=== PATIENT | female | born 1945 | race Caucasian/White ===

== ENCOUNTER 2017-09-01 19:06 | Inpatient (IN) | payer MEDICARE, BC ==
[2017-09-01] MEDS ORDERED: Acetaminophen 325 MG Tab PO ONE (19:35)
--- NOTE | 2017-09-01 19:38 | EDM.PDOC ---
ED HPI GENERAL MEDICAL PROBLEM - General Chief Complaint: Respiratory Problem Stated Complaint: FLU LIKE SENT FROM [place] TO DO TEST Time Seen by Provider: 09/01/17 19:33 Source of Information: Reports: Patient, Family (spouse) History Limitations: Reports: No Limitations - History of Present Illness INITIAL COMMENTS - FREE TEXT/NARRATIVE: 72-year-old female brought to the ED by her spouse. History is that of development of fever chills paroxysmal cough bodyaches and headache last Friday, August 27 . She continues to have severe paroxysmal cough that is intermittently productive. Still chilled. Can't eat. Losing weight. Has been mostly bedridden for almost a week. 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 She did not receive a flu shot. She has restrictive lung disease but does not use oxygen at home. Onset: Sudden Onset Date: 08/27/17 Duration: Day(s):, Constant, Getting Worse Location: Reports: Chest (Severe paroxysmal cough sometimes productive of yellowish phlegm. No hemoptysis.) Quality: Reports: Other Severity: Moderate (Paroxysmal cough) Improves with: Reports: None Worsens with: Reports: Movement (Very weak and dizzy when she stands or tries to do any work.) Context: Reports: Sick Contact. Denies: Activity, Exercise, Lifting, Trauma, Other Associated Symptoms: Reports: Chest Pain, Cough, cough w sputum, Diaphoresis, Fever/Chills, Headaches, Loss of Appetite, Malaise (Complete loss of appetite. Has been taking small quantities of Pedialyte and Gatorade.), Shortness of Breath, Weakness, Other (Had slight diarrhea the first day of illness.). Denies : No Other Symptoms, Confusion (From coughing so much), Rash, Seizure, Syncope Treatments INTELLIGENCE AGENT: Reports: Acetaminophen, NSAIDS (Motrin when necessary.) - Related Data Allergies Allergy/AdvReac Type Severity Reaction Status Date / Time No Known Allergies Allergy Verified 09/01/17 22:39 Home Meds: Home Meds Levothyroxine [Synthroid] 88 mcg PO ACBREAKFAST 09/01/17 [History] Past Medical History Endocrine/Metabolic History: Reports: Hypothyroidism (Is on supplement and has been taking her medication.) Hematologic History: Reports: B12 Deficiency Social & Family History - Tobacco Use Smoking Status *Q: Unknown Ever Smoked Second Hand Smoke Exposure: No - Recreational Drug Use Recreational Drug Use: No - Living Situation & Occupation Living situation: Reports: Occupation: Employed ED ROS GENERAL - Review of Systems Review Of Systems: See Below Constitutional: Reports: Fever, Chills, Malaise, Weakness, Fatigue, Diaphoresis , Decreased Appetite, Weight Loss HEENT: Reports: Ear Pain, Hearing Loss (Hearing aids but hasn't put them in because they hurt.). Denies: Vision Change Respiratory: Reports: Shortness of Breath, Cough, Sputum. Denies: Wheezing, Pleuritic Chest Pain, Hemoptysis Cardiovascular: Reports: Chest Pain, Dyspnea on Exertion (Special he was standing), Lightheadedness. Denies: Blood Pressure Problem (Only from coughing so much.), Claudication, Edema, Orthopnea Endocrine: Reports: Fatigue GI/Abdominal: Reports: Abdominal Pain (Upper abdominal pain I believe from coughing.) : Reports: Dysuria (Some dysuria. Not making as much urine is normal.) Musculoskeletal: Reports: Muscle Pain (Generalized myalgia and headache) Neurological: Reports: Dizziness, Difficulty Walking (Due to weakness in her legs.). Denies: Paresthesia, Pre-Existing Deficit (With standing), Seizure Psychiatric: Reports: No Symptoms Hematologic/Lymphatic: Reports: No Symptoms Immunologic: Reports: No Symptoms ED EXAM, GENERAL - Physical Exam Exam: See Below Exam Limited By: No Limitations General Appearance: Alert, Mild Distress, Other (Does feel mildly warm to palpation.) Eye Exam: Bilateral Eye: Normal Inspection (No jaundice.) Ears: Normal TMs Throat/Mouth: Other Head: Atraumatic (Lips and tongue are coated and dry. Oropharynx is otherwise normal.), Normocephalic Neck: Normal Inspection, Supple, Non-Tender, Full Range of Motion. No: Carotid Bruit, Lymphadenopathy (L), Lymphadenopathy (R) Respiratory/Chest: Respiratory Distress (Mild tachypnea at rest 20/m.), Decreased Breath Sounds (Some rhonchi upper anterior lobes bilaterally.), Rhonchi, Other ( Vessels are mildly diminished in both bases. patient has marked kyphosis of the thoracic spine and would have a component of restrictive lung disease. All ribs are easily visible.) Cardiovascular: Normal Peripheral Pulses, Regular Rate, Rhythm, No Edema, No Gallop, No Murmur, No Rub, Diastolic Murmur (Early diastolic murmur grade 1/6 Marianne the left lower sternal border compatible with aortic insufficiency.) Peripheral Pulses: 1+: Posterior Tibial (L), Posterior Tibial (R), Dorsalis Pedis (L), Dorsalis Pedis (R) GI/Abdominal: Normal Bowel Sounds, Soft, Non-Tender, No Organomegaly, No Abnormal Bruit, No Mass Back Exam: Normal Inspection, Full Range of Motion, Other (Marked kyphosis of the thoracic spine with a component of restrictive lung disease). No: CVA Tenderness (L), CVA Tenderness (R) Extremities: Normal Inspection, Normal Range of Motion, Non-Tender, No Pedal Edema, Other Neurological: Alert (She is very petite with some atrophy of muscles limbs.), Oriented, CN II-XII Intact, Normal Cognition Psychiatric: Normal Affect Skin Exam: Warm, Dry, Intact, Normal Color, No Rash, Other (Does feel mildly warm to palpation.) Course - Vital Signs Last Recorded V/S: Last Vital Signs Temp 37.3 C 09/01/17 22:52 Pulse 72 09/01/17 22:52 Resp 14 09/01/17 22:52 BP 121/97 H 09/01/17 22:52 Pulse Ox 97 09/01/17 22:52 - Orders/Labs/Meds Orders: Active Orders 24 hr Category Date Time Status Admission Status [Patient Status] [ADT] Routine ADT 09/01/17 22:29 Active Chest 1V Frontal [CR] Stat Exams 09/01/17 19:34 Taken CULTURE BLOOD [BC] Stat Lab 09/01/17 20:30 Received CULTURE BLOOD [BC] Stat Lab 09/01/17 20:30 Received CULTURE URINE [RM] Stat Lab 09/01/17 20:00 Received Dextrose 5%-0.9% NaCl [Dextrose 5%-Normal Saline] 1,000 Med 09/01/17 19:45 Active ml IV ASDIRECTED Dextrose 5%-0.9% NaCl [Dextrose 5%-Normal Saline] 1,000 Med 09/01/17 21:15 Active ml IV ASDIRECTED Ketorolac [Toradol] Med 09/01/17 19:45 Active 30 mg IVPUSH ONETIME Blood Culture x2 Reflex Set [OM.PC] Stat Oth 09/01/17 20:13 Ordered Medication Orders Hydrocodone Bitart/Acetaminophen ([place] 325-5 Mg) 1 tab PO Q4H PRN PRN Reason: Pain (moderate 4-6) Albuterol/Ipratropium (Duoneb 3.0-0.5 Mg/3 Ml) 3 ml NEB Q4H PRN PRN Reason: Shortness Of Breath/wheezing Bisacodyl (Dulcolax) 5 mg PO DAILY PRN PRN Reason: Constipation Docusate Sodium (Colace) 100 mg PO BID PRN PRN Reason: Constipation Enoxaparin Sodium (Lovenox) 40 mg SUBCUT DAILY [facility] Guaifenesin/Phenylephrine HCl (Robitussin Dm) 5 ml PO Q4H PRN PRN Reason: Cough Hydralazine HCl (Apresoline) 20 mg IVPUSH Q4H PRN PRN Reason: Hypertension Dextrose/Sodium Chloride (Dextrose 5%-Normal Saline) 1,000 mls @ 999 mls/hr IV ASDIRECTED [facility] Last Admin: 09/01/17 20:07 Dose: 999 mls/hr Dextrose/Sodium Chloride (Dextrose 5%-Normal Saline) 1,000 mls @ 150 mls/hr IV ASDIRECTED [facility] Last Admin: 09/01/17 21:30 Dose: 150 mls/hr Promethazine HCl 6.25 mg/ (Sodium Chloride) 50.25 mls @ 100 mls/hr IV Q6H PRN PRN Reason: Nausea/Vomiting Sodium Chloride (Normal Saline) 1,000 mls @ 75 mls/hr IV ASDIRECTED [facility] Last Admin: 09/01/17 23:41 Dose: 75 mls/hr Potassium Chloride 10 meq/ (Premix) 100 mls @ 100 mls/hr IV Q1H [facility] Stop: 09/02/17 04:59 Last Admin: 09/02/17 01:55 Dose: 100 mls/hr Infusion: 09/02/17 01:52 Dose: 100 mls/hr Admin: 09/02/17 00:52 Dose: 100 mls/hr Infusion: 09/02/17 00:42 Dose: 100 mls/hr Admin: 09/01/17 23:42 Dose: 100 mls/hr Levofloxacin/Dextrose 750 mg/ (Premix) 150 mls @ 100 mls/hr IV Q24H [facility] Ketorolac Tromethamine (Toradol) 30 mg IVPUSH ONETIME [facility] Last Admin: 09/01/17 20:01 Dose: 30 mg Levothyroxine Sodium (Synthroid) 88 mcg PO ACBREAKFAST [facility] Lorazepam (Ativan) 0.5 mg IV Q6H PRN PRN Reason: Anxiety Lorazepam (Ativan) 2 mg IVPUSH Q4H PRN PRN Reason: Seizures Magnesium Sulfate (Pharmacy To Dose - Magnesium Replacement) 1 dose .XX ASDIRECTED [facility] Morphine Sulfate (Morphine) 1 mg IVPUSH Q4H PRN PRN Reason: Pain (severe 7-10) Stop: 09/07/17 22:44 Ondansetron HCl (Zofran Odt) 4 mg PO Q6H PRN PRN Reason: nausea, able to take PO Ondansetron HCl (Zofran) 4 mg IV Q6H PRN PRN Reason: Nausea/Vomiting Oral Electrolytes (Thermotabs) 1 each PO BID [facility] Polyethylene Glycol (Miralax) 17 gm PO DAILY PRN PRN Reason: Constipation Potassium Chloride (Pharmacy To Dose - Potassium Replacement) 1 dose .XX ASDIRECTED [facility] Saccharomyces Boulardii (Florastor) 250 mg PO DAILY [facility] Senna/Docusate Sodium (Senna Plus) 1 tab PO BID PRN PRN Reason: Constipation Temazepam (Restoril) 7.5 mg PO BEDTIME PRN PRN Reason: Sleep Labs: Laboratory Tests 09/01/17 09/01/17 09/01/17 Range/Units 19:50 19:50 19:50 WBC 11.67 H (3.98-10.04) K/mm3 RBC 3.89 L (3.98-5.22) M/mm3 Hgb 12.1 (11.2-15.7) gm/L Hct 34.8 (34.1-44.9) % MCV 89.5 (79.4-94.8) fl MCH 31.1 (25.6-32.2) pg MCHC 34.8 (32.2-35.5) g/dl RDW Std Deviation 40.3 (36.4-46.3) fL Plt Count 241 (182-369) K/mm3 MPV 9.6 (9.4-12.3) fl Neutrophils % (Manual) 91 H (40-60) % Band Neutrophils % 0 (0-10) % Lymphocytes % (Manual) 4 L (20-40) % Atypical Lymphs % 0 % Monocytes % (Manual) 5 (2-10) % Eosinophils % (Manual) 0 L (0.7-5.8) % Basophils % (Manual) 0 L (0.1-1.2) Toxic Granulation 2+ moderate Platelet Estimate Adequate Anisocytosis 1+ slight RBC Morph Comment Abnormal ESR 81 H (0-20) mm/hr Sodium 129 L (136-145) mEq/L Potassium 2.7 L (3.5-5.1) mEq/L Chloride 93 L (98-107) mEq/L Carbon Dioxide 29 (21-32) mEq/L Anion Gap 9.7 (5-15) BUN 10 (7-18) mg/dL Creatinine 0.6 (0.55-1.02) mg/dL Est Cr Clr Drug Dosing 65.60 mL/min Estimated GFR (MDRD) > 60 (>60) mL/min BUN/Creatinine Ratio 16.7 (14-18) Glucose 108 (80-115) mg/dL Calcium 8.4 L (8.5-10.1) mg/dL Total Bilirubin 0.7 (0.2-1.0) mg/dL AST 34 (15-37) U/L ALT 29 (14-59) U/L Alkaline Phosphatase 65 (46-116) U/L C-Reactive Protein 26.0 H* (<1.0) mg/dL Total Protein 6.4 (6.4-8.2) g/dl Albumin 2.4 L (3.4-5.0) g/dl Globulin 4.0 gm/dL Albumin/Globulin Ratio 0.6 L (1-2) Urine Color (Yellow) Urine Appearance (Clear) Urine pH (5.0-8.0) Ur Specific [place] (1.005-1.030) Urine Protein (Negative) Urine Glucose (UA) (Negative) Urine Ketones (Negative) Urine Occult Blood (Negative) Urine Nitrite (Negative) Urine Bilirubin (Negative) Urine Urobilinogen (0.2-1.0) Ur Leukocyte Esterase (Negative) Urine RBC (0-5) /hpf Urine WBC (0-5) /hpf Ur Epithelial Cells (0-5) /hpf Urine Bacteria (FEW) /hpf Urine Mucus (FEW) /hpf Mycoplasma pneumon IgM (NEGATIVE) 03/12/18 03/12/18 Range/Units 19:50 20:00 WBC (3.98-10.04) K/mm3 RBC (3.98-5.22) M/mm3 Hgb (11.2-15.7) gm/L Hct (34.1-44.9) % MCV (79.4-94.8) fl MCH (25.6-32.2) pg MCHC (32.2-35.5) g/dl RDW Std Deviation (36.4-46.3) fL Plt Count (182-369) K/mm3 MPV (9.4-12.3) fl Neutrophils % (Manual) (40-60) % Band Neutrophils % (0-10) % Lymphocytes % (Manual) (20-40) % Atypical Lymphs % % Monocytes % (Manual) (2-10) % Eosinophils % (Manual) (0.7-5.8) % Basophils % (Manual) (0.1-1.2) Toxic Granulation Platelet Estimate Anisocytosis RBC Morph Comment ESR (0-20) mm/hr Sodium (136-145) mEq/L Potassium (3.5-5.1) mEq/L Chloride (98-107) mEq/L Carbon Dioxide (21-32) mEq/L Anion Gap (5-15) BUN (7-18) mg/dL Creatinine (0.55-1.02) mg/dL Est Cr Clr Drug Dosing mL/min Estimated GFR (MDRD) (>60) mL/min BUN/Creatinine Ratio (14-18) Glucose (80-115) mg/dL Calcium (8.5-10.1) mg/dL Total Bilirubin (0.2-1.0) mg/dL AST (15-37) U/L ALT (14-59) U/L Alkaline Phosphatase (46-116) U/L C-Reactive Protein (<1.0) mg/dL Total Protein (6.4-8.2) g/dl Albumin (3.4-5.0) g/dl Globulin gm/dL Albumin/Globulin Ratio (1-2) Urine Color Yellow (Yellow) Urine Appearance Clear (Clear) Urine pH 7.0 (5.0-8.0) Ur Specific [place] 1.020 (1.005-1.030) Urine Protein 2+ H (Negative) Urine Glucose (UA) Negative (Negative) Urine Ketones Negative (Negative) Urine Occult Blood Trace-intact H (Negative) Urine Nitrite Negative (Negative) Urine Bilirubin 1+ H (Negative) Urine Urobilinogen >=8.0 H (0.2-1.0) Ur Leukocyte Esterase Negative (Negative) Urine RBC 10-20 H (0-5) /hpf Urine WBC 5-10 H (0-5) /hpf Ur Epithelial Cells 0-5 (0-5) /hpf Urine Bacteria Few (FEW) /hpf Urine Mucus Moderate H (FEW) /hpf Mycoplasma pneumon IgM Negative (NEGATIVE) Meds: Medications Generic Name Dose Route Start Last Admin Trade Name Freq PRN Reason Stop Dose Admin Hydrocodone Bitart/Acetaminophen 1 tab 09/01/17 22:41 [place] 325-5 Mg PO Q4H PRN Pain (moderate 4-6) Albuterol/Ipratropium 3 ml 09/01/17 22:45 Duoneb 3.0-0.5 Mg/3 Ml NEB Q4H PRN Shortness Of Breath/wheezing Bisacodyl 5 mg 09/01/17 22:45 Dulcolax PO DAILY PRN Constipation Docusate Sodium 100 mg 09/01/17 22:45 Colace PO BID PRN Constipation Enoxaparin Sodium 40 mg 09/02/17 09:00 Lovenox SUBCUT DAILY [facility] Guaifenesin/Phenylephrine HCl 5 ml 09/01/17 22:52 Robitussin Dm PO Q4H PRN Cough Hydralazine HCl 20 mg 09/01/17 22:52 Apresoline IVPUSH Q4H PRN Hypertension Dextrose/Sodium Chloride 1,000 mls @ 999 mls/hr 09/01/17 19:45 09/01/17 20:07 Dextrose 5%-Normal Saline IV 999 mls/hr ASDIRECTED [facility] Administration Dextrose/Sodium Chloride 1,000 mls @ 150 mls/hr 09/01/17 21:15 09/01/17 21:30 Dextrose 5%-Normal Saline IV 150 mls/hr ASDIRECTED [facility] Administration Promethazine HCl 6.25 mg/ 50.25 mls @ 100 mls/hr 09/01/17 22:45 Sodium Chloride IV Q6H PRN Nausea/Vomiting Sodium Chloride 1,000 mls @ 75 mls/hr 09/01/17 22:45 09/01/17 23:41 Normal Saline IV 75 mls/hr ASDIRECTED [facility] Administration Potassium Chloride 10 meq/ 100 mls @ 100 mls/hr 09/01/17 23:00 09/02/17 01:55 Premix IV 09/02/17 04:59 100 mls/hr Q1H [facility] Administration Levofloxacin/Dextrose 750 mg/ 150 mls @ 100 mls/hr 09/02/17 18:00 Premix IV Q24H [facility] Ketorolac Tromethamine 30 mg 09/01/17 19:45 09/01/17 20:01 Toradol IVPUSH 30 mg ONETIME [facility] Administration Levothyroxine Sodium 88 mcg 09/02/17 06:00 Synthroid PO ACBREAKFAST [facility] Lorazepam 0.5 mg 09/01/17 22:45 Ativan IV Q6H PRN Anxiety Lorazepam 2 mg 09/01/17 22:52 Ativan IVPUSH Q4H PRN Seizures Magnesium Sulfate 1 dose 09/01/17 23:00 Pharmacy To Dose - Magnesium Replacement .XX ASDIRECTED [facility] Morphine Sulfate 1 mg 09/01/17 22:41 Morphine IVPUSH 09/07/17 22:44 Q4H PRN Pain (severe 7-10) Ondansetron HCl 4 mg 09/01/17 22:45 Zofran Odt PO Q6H PRN nausea, able to take PO Ondansetron HCl 4 mg 09/01/17 22:45 Zofran IV Q6H PRN Nausea/Vomiting Oral Electrolytes 1 each 09/02/17 09:00 Thermotabs PO BID [facility] Polyethylene Glycol 17 gm 09/01/17 22:45 Miralax PO DAILY PRN Constipation Potassium Chloride 1 dose 09/01/17 23:00 Pharmacy To Dose - Potassium Replacement .XX ASDIRECTED [facility] Saccharomyces Boulardii 250 mg 09/02/17 09:00 Florastor PO DAILY [facility] Senna/Docusate Sodium 1 tab 09/01/17 22:45 Senna Plus PO BID PRN Constipation Temazepam 7.5 mg 09/01/17 22:45 Restoril PO BEDTIME PRN Sleep Discontinued Medications Generic Name Dose Route Start Last Admin Trade Name Freq PRN Reason Stop Dose Admin Acetaminophen 650 mg 09/01/17 19:35 09/01/17 19:52 Tylenol PO 09/01/17 19:36 650 mg ONETIME ONE Administration Levofloxacin/Dextrose 750 mg/ 150 mls @ 100 mls/hr 09/01/17 21:02 09/01/17 21 :35 Premix IV 09/01/17 22:31 100 mls/hr ONETIME ONE Administration Potassium Chloride 10 meq/ 100 mls @ 100 mls/hr 09/01/17 21:02 09/01/17 21:32 Premix IV 09/01/17 22:01 100 mls/hr ONETIME ONE Administration - Radiology Interpretation Free Text/Narrative:: 72-year-old female presents the ED with a six-day history of severe paroxysmal cough that is intermittently productive. Associated headaches body aches and complete loss of appetite. This is a 6 of illness and she is still not better. She went over to the [facility] and was sent to the ED for further evaluation. 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 She did not have a flu shot. Plan influenza screen. IV will be D5 normal saline at open as she clinically is volume depleted. Toradol 30 mg IV for body ache and headache. Tylenol 650 mg orally for fever relief. - Re-Assessments/Exams Free Text/Narrative Re-Assessment/Exam: 09/01/17 20:13 portable chest x-ray one view reveals diffuse pulmonary fibrosis pattern. There is an infiltrate right lower lobe and left lower lobes suspicious for possible pneumonia. Reticulocyte silhouette is within normal limits. I will have blood cultures done 2 due to suspicion of pneumonia. Sedimentation rate will also be done due to the appearance of her lungs. Amazingly her O2 sats are 97% on room air. 09/01/17 21:01 Labs reveal a mildly elevated white count at 11.67 with 91% neutrophils and no bands. Hemoglobin is 12.1 with hematocrit of 34.8. Reticulocyte count is 241,000. There is 2+ moderate granular toxic granulation reported. Sedimentation rate is elevated at 81. Sodium is low at 129 potassium very low at 2.7. Chloride 93 bicarbonate 29. Anion gap is normal at 9.7. BUN is 10 creatinine is 0.6. GFR greater than 60. Glucose is 108. Calcium normal 8.4. Liver function normal C-reactive protein markedly elevated at 26. Albumin fraction low at 2.4. Urinalysis shows 2+ protein and trace of occult blood 1+ bilirubin greater than 8+ urobilinogen leukocyte Estrace negative RBCs 10-20 per high-power field white blood cells 5-10 per high-power field and few bacteria noted. Urine culture ordered. Clinically patient has pneumonia. Influenza screens were negative. Patient will be given Levaquin 750 mg IV. She will also be given potassium 10 mEq intravenously over the next hour. Her hyponatremia will be corrected with IV fluids as well. Patient will require admission to the hospital ,therefore I will contact Dr. Nails-- transportation driver hospitalist in this regard Departure - Departure Time of Disposition: 01:50 Disposition: Admitted As Inpatient 68 Condition: Fair Clinical Impression: Hypokalemia due to inadequate potassium intake, Hyponatremia Pneumonia Qualifiers: Pneumonia type: due to unspecified organism Laterality: right Lung location: lower lobe of lung Qualified Code(s): J18.1 - Lobar pneumonia, unspecified organism - Discharge Information - My Orders Last 24 Hours: My Active Orders 09/01/17 19:34 Chest 1V Frontal [CR] Stat 09/01/17 19:45 Dextrose 5%-0.9% NaCl [Dextrose 5%-Normal Saline] 1,000 ml IV ASDIRECTED Ketorolac [Toradol] 30 mg IVPUSH ONETIME 09/01/17 20:00 CULTURE URINE [RM] Stat 09/01/17 20:13 Blood Culture x2 Reflex Set [OM.PC] Stat 09/01/17 20:30 CULTURE BLOOD [BC] Stat CULTURE BLOOD [BC] Stat 09/01/17 21:15 Dextrose 5%-0.9% NaCl [Dextrose 5%-Normal Saline] 1,000 ml IV ASDIRECTED 09/01/17 22:29 Admission Status [Patient Status] [ADT] Routine - Assessment/Plan Last 24 Hours: My Active Orders 09/01/17 19:34 Chest 1V Frontal [CR] Stat 09/01/17 19:45 Dextrose 5%-0.9% NaCl [Dextrose 5%-Normal Saline] 1,000 ml IV ASDIRECTED Ketorolac [Toradol] 30 mg IVPUSH ONETIME 09/01/17 20:00 CULTURE URINE [RM] Stat 09/01/17 20:13 Blood Culture x2 Reflex Set [OM.PC] Stat 09/01/17 20:30 CULTURE BLOOD [BC] Stat CULTURE BLOOD [BC] Stat 09/01/17 21:15 Dextrose 5%-0.9% NaCl [Dextrose 5%-Normal Saline] 1,000 ml IV ASDIRECTED 09/01/17 22:29 Admission Status [Patient Status] [ADT] Routine
[2017-09-01] MEDS ORDERED: Dextrose 5%-0.9% NaCl 1,000 ML IV SCH ×2 (19:45→21:15)
[2017-09-01] MEDS ORDERED: Ketorolac 30 MG/ML SDV IVPUSH SCH (19:45)
[2017-09-01] MEDS ORDERED: Potassium Chloride 10 MEQ in Premix Bag 1 BAG IV ONE (21:02)
[2017-09-01] MEDS ORDERED: Levofloxacin/Dextrose 5%-Water 750 MG in Premix Bag 1 BAG IV ONE (21:02)
--- NOTE | 2017-09-01 22:40 | PCM.HP ---
H&P History of Present Illness - General Date of Service: 09/01/17 Admit Problem/Dx: Pneumonia Source of Information: Patient, Provider, RN Notes Reviewed History Limitations: Reports: No Limitations - History of Present Illness Initial Comments - Free Text/Narative: This is a 72 yo elderly white female with no significant past medical hx/o except for hypothyroidism who comes in for evaluation of febrile illness associated with paroxysmal productive cough, body aches/pain and headaches that stated this past Friday. Her appetite is marginal. She has been mostly bedridden for at least a week now. She denies any sick contact. She works as a cook. She used to smoke but quite long time ago. She denies any hx/o cardiac or pulmonary disease. She reports no previous hx/o it in the past. She denies any recent travel outside the state or country. Initial workup in emergency department shows a CBC remarkable for WBC of 11.67, RBC of 2.89, neutrophils of 91%, lymphocytes of 4%, and ESR of 81. Her chemistry is remarkable for sodium of 129, potassium of 2.7, chloride of 92, calcium of 8.4, CRP of 26 and albumin of 2.4. Her UA is not suggestive of urinary tract infection. Her chest x-ray shows patchy areas of increased density within both lungs. She is being admitted for CAP. She is CPR only - Related Data Allergies/Adverse Reactions: Allergies Allergy/AdvReac Type Severity Reaction Status Date / Time No Known Allergies Allergy Verified 09/01/17 22:39 Home Medications: Home Meds Levothyroxine [Synthroid] 88 mcg PO ACBREAKFAST 09/01/17 [History] Past Medical History Endocrine/Metabolic History: Reports: Hypothyroidism (Is on supplement and has been taking her medication.) Hematologic History: Reports: B12 Deficiency Social & Family History - Tobacco Use Smoking Status *Q: Unknown Ever Smoked Second Hand Smoke Exposure: No - Recreational Drug Use Recreational Drug Use: No - Living Situation & Occupation Living situation: Reports: Occupation: Employed H&P Review of Systems - Review of Systems: Review Of Systems: See Below General: Reports: Fever, Chills, Malaise, Weakness, Fatigue, Diaphoresis, Decreased Appetite HEENT: Reports: Other (hard of hearing- wears hearing aids) Pulmonary: Reports: Shortness of Breath, Cough, Sputum. Denies: Wheezing, Pleuritic Chest Pain, Hemoptysis Cardiovascular: Reports: Chest Pain, Dyspnea on Exertion. Denies: Palpitations , Orthopnea, Edema, Lightheadedness, Syncope, Claudication, Blood Pressure Problem Gastrointestinal: Reports: Decreased Appetite, Flatus. Denies: Abdominal Pain, Constipation, Diarrhea, Difficulty Swallowing, Nausea, Vomiting Genitourinary: Reports: Dysuria. Denies: Frequency, Burning, Pain, Urgency, Incontinence, Hematuria, Retention, Discharge, Flank Pain Musculoskeletal: Reports: Muscle Pain Skin: Reports: Diaphoresis. Denies: Cyanosis, Jaundice, Mottled, Pallor, Bruising, Rash, Erythema, Wound Psychiatric: Denies: Depression, Mood Lability, Anxiety, Hallucinations Neurological: Reports: Dizziness, Difficulty Walking, Weakness. Denies: Confusion Hematologic/Lymphatic: Reports: No Symptoms Exam - Exam Exam: See Below - Vital Signs Vital Signs: Last Vital Signs Temp 37.5 C 09/01/17 19:52 Pulse 94 09/01/17 19:22 Resp BP 143/76 H 09/01/17 19:22 Pulse Ox 97 09/01/17 19:22 Weight: 47.627 kg - Exam General: Alert, Oriented, Cooperative. No: Mild Distress HEENT: Conjunctiva Clear, EACs Clear, EOMI, Hearing Intact, Mucosa Moist & [place] , Nares Patent, Normal Nasal Septum, Posterior Pharynx Clear, Pupils Equal, Pupils Reactive, Other (somewhat hard of hearing) Neck: Supple, Trachea Midline Lungs: Normal Respiratory Effort, Decreased Breath Sounds, Rhonchi Cardiovascular: Regular Rate, Regular Rhythm GI/Abdominal Exam: Normal Bowel Sounds, Soft, Non-Tender, No Organomegaly, No Distention, No Abnormal Bruit (Female) Exam: Deferred Rectal (Female) Exam: Deferred Back Exam: Normal Inspection, Decreased Range of Motion Extremities: Normal Inspection, Normal Range of Motion, Non-Tender, No Pedal Edema, Normal Capillary Refill Peripheral Pulses: 3+: Posterior Tibial (L), Posterior Tibial (R), Dorsalis Pedis (L), Dorsalis Pedis (R) Skin: Warm, Dry, Intact Neuro Extensive - Mental Status: Oriented x3, Normal Cognition, Memory Intact Neuro Extensive - Motor, Sensory, Reflexes: CN II-XII Intact, Normal Gait Psychiatric: Alert, Normal Affect, Normal Mood - Patient Data Result Diagrams: 09/02/17 06:36 09/02/17 06:43 *Q Meaningful Use (ADM) - VTE *Q VTE Criteria *Q: - Stroke *Q Stroke Criteria *Q: - AMI *Q AMI Criteria *Q: Problem List Initiated/Reviewed/Updated: Yes Orders Last 24hrs: Medication Orders Dextrose/Sodium Chloride (Dextrose 5%-Normal Saline) 1,000 mls @ 999 mls/hr IV ASDIRECTED DOROTHY Last Admin: 09/01/17 20:07 Dose: 999 mls/hr Dextrose/Sodium Chloride (Dextrose 5%-Normal Saline) 1,000 mls @ 150 mls/hr IV ASDIRECTED DOROTHY Last Admin: 09/01/17 21:30 Dose: 150 mls/hr Ketorolac Tromethamine (Toradol) 30 mg IVPUSH ONETIME DOROTHY Last Admin: 09/01/17 20:01 Dose: 30 mg Assessment/Plan Comment:: Assessment/Plan: Acute: CAP - No obvious risk factors - She no longer smokes - CXR shows multiple patchy areas of opacification - WBC is 11.67 and CRP 26 - Sputum Cx, Strep pneumonia Ag, Mycoplasma and Influenza screening test - IV Levaquin 750 mg Daily - IS as directed Hypokalemia - K 2.7 - 2/2 inadequate intake - Replete and monitor Hyponatremia - NA 129 - She is on thiazide or psychotropic medications - Likely from Pulmonary Insufficiency - Thermotabs 1 tab po BID Chronic: Hypothyroidism 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 Informed her, will have CM and SW go over her insurance and discuss options with her in AM. She was also informed she has a serious illness and that we do not recommend for her to leave but if she feels strongly to go, she can leave AMA.
[2017-09-01] MEDS ORDERED: Morphine 2 MG/ML Syringe IVPUSH PRN (22:41)
[2017-09-01] MEDS ORDERED: Acetaminophen/HYDROcodone 325-5 MG Tab PO PRN (22:41)
[2017-09-01] MEDS ORDERED: Temazepam 7.5 MG Cap PO PRN (22:45)
[2017-09-01] MEDS ORDERED: Promethazine 6.25 MG in Sodium Chloride 0.9% 50 ML IV PRN (22:45)
[2017-09-01] MEDS ORDERED: Polyethylene Glycol 3350 Powder 17 GM Packet PO PRN (22:45)
[2017-09-01] MEDS ORDERED: Ondansetron 4 MG/2 ML SDV IV PRN (22:45)
[2017-09-01] MEDS ORDERED: Docusate Sodium 100 MG Cap PO PRN (22:45)
[2017-09-01] MEDS ORDERED: LORazepam 2 MG/ML SDV IV PRN (22:45)
[2017-09-01] MEDS ORDERED: Bisacodyl 5 MG Tab PO PRN (22:45)
[2017-09-01] MEDS ORDERED: Ondansetron 4 MG Tab.DIS PO PRN (22:45)
[2017-09-01] MEDS ORDERED: Albuterol/Ipratropium 3.0-0.5 MG/3 ML Neb Soln NEB PRN (22:45)
[2017-09-01] MEDS ORDERED: LORazepam 2 MG/ML SDV IVPUSH PRN (22:52)
[2017-09-01] MEDS ORDERED: guaiFENesin/Dextromethorphan 100-10 MG/5 ML Soln 5 ML Cup PO PRN (22:52)
[2017-09-01] MEDS: Sodium Chloride 0.9% 1,000 ML IV SCH (23:41)
[2017-09-01] MEDS: Potassium Chloride 10 MEQ in Premix Bag 1 BAG IV SCH (23:42)
[2017-09-02] MEDS: Potassium Chloride 10 MEQ in Premix Bag 1 BAG IV SCH ×5 (00:52→05:45)
[2017-09-02] MEDS: Levothyroxine 88 MCG Tab PO SCH (06:42)
[2017-09-02] MEDS: Potassium Chloride/Sodium Chloride Tab PO SCH ×2 (08:47→20:13)
[2017-09-02] MEDS: Enoxaparin 40 MG/0.4 ML Syringe SUBCUT SCH (08:47)
[2017-09-02] MEDS: Saccharomyces Boulardii (Probiotic) 250 MG Cap PO SCH (08:47)
[2017-09-02] MEDS ORDERED: Enoxaparin 30 MG/0.3 ML Syringe SUBCUT SCH (09:00)
[2017-09-02] MEDS ORDERED: Magnesium Sulfate/Water 2 GM in Premix Bag 1 BAG IV ONE (09:00)
--- NOTE | 2017-09-02 09:08 | CT ---
CT chest Technique: Multiple axial sections through the chest were obtained. Intravenous contrast was not utilized. Comparison: Prior chest x-ray of 09/01/17. Findings: Patchy areas of increased density are noted within both lower lungs as well as within the right middle lobe. Lesser change is noted within portions of the right upper lung. Apical pleural scarring is seen. Mild emphysematous changes are scattered throughout both sides. Very small pleural effusions are seen bilaterally. Small area of pleural calcification is seen posteriorly within the upper right lung. Heart size does not appear enlarged. Mediastinum shows no adenopathy. Atherosclerotic calcification is noted within the thoracic aorta. Impression: 1. Patchy areas of increased density within both lower lungs as well as within the right middle lobe and within both upper lungs. These findings are most likely infectious in etiology. Multiple areas of pneumonia are suspected. Findings could be due to typical or atypical organisms. 2. Emphysematous change and other incidental findings. Diagnostic code #3
--- NOTE | 2017-09-02 11:14 | CR ---
Chest: Frontal view of the chest was obtained. Comparison: No prior chest imaging. Increased density is seen within the right and left lower lungs. Lung markings are increased within both lungs. Heart size does not appear enlarged. Scoliosis is noted within the spine. Bony structures are osteopenic. Impression: 1. Areas of increased density within both lungs as well as mild increased lung markings. Findings are felt to correlate to patchy areas of increased density within both lungs on subsequent CT study. Diagnostic code #3
[2017-09-02] MEDS: Sodium Chloride 0.9% 1,000 ML IV SCH (13:40)
[2017-09-02] MEDS ORDERED: Levofloxacin/Dextrose 5%-Water 750 MG in Premix Bag 1 BAG IV SCH (18:00)
--- NOTE | 2017-09-02 19:47 | PCM.PN ---
- General Info Date of Service: 09/02/17 Admission Dx/Problem (Free Text): Pneumonia Subjective Update: Follow Up Functional Status: Reports: Pain Controlled, Tolerating Diet, Ambulating, Urinating. Denies: New Symptoms - Review of Systems General: Denies: Fever, Weakness, Fatigue, Malaise, Chills HEENT: Reports: No Symptoms Pulmonary: Denies: Shortness of Breath, Cough, Sputum Cardiovascular: Denies: Chest Pain, Palpitations, Dyspnea on Exertion, Lightheadedness Gastrointestinal: Denies: Abdominal Pain, Difficulty Swallowing, Melena, Nausea , Vomiting Genitourinary: Reports: No Symptoms Musculoskeletal: Reports: No Symptoms Skin: Denies: Cyanosis, Jaundice, Mottled, Pallor, Diaphoresis, Bruising, Pruritis, Rash Neurological: Denies: Confusion, Pre-Existing Deficit, Difficulty Walking, Weakness, Gait Disturbance Psychiatric: Denies: Depression, Anxiety, Agitation, Hallucinations Systems Review Comment:: No significant overnight or acute issues. She slept pretty good and feels better this AM. She has no new complaints. - Patient Data Vitals - Most Recent: Last Vital Signs Temp 36.7 C 09/02/17 11:19 Pulse 85 09/02/17 11:19 Resp 19 09/02/17 11:19 BP 130/75 09/02/17 11:19 Pulse Ox 100 09/02/17 11:19 Weight - Most Recent: 42.728 kg I&O - Last 24 Hours: Intake & Output 09/02/17 09/02/17 09/02/17 06:59 14:59 22:59 Intake Total 3995 382 0785 Output Total 900 900 Balance 763 972 9971 Lab Results Last 24 Hours: Laboratory Results - last 24 hr 09/02/17 09/02/17 Range/Units 06:36 06:43 WBC 11.29 H (3.98-10.04) K/mm3 RBC 3.65 L (3.98-5.22) M/mm3 Hgb 11.1 L (11.2-15.7) gm/L Hct 32.9 L (34.1-44.9) % MCV 90.1 (79.4-94.8) fl MCH 30.4 (25.6-32.2) pg MCHC 33.7 (32.2-35.5) g/dl RDW Std Deviation 41.8 (36.4-46.3) fL Plt Count 241 (182-369) K/mm3 MPV 9.6 (9.4-12.3) fl Neut % (Auto) 87.9 H (34.0-71.1) % Lymph % (Auto) 4.8 L (19.3-51.7) % [place] % (Auto) 6.5 (4.7-12.5) % Eos % (Auto) 0.2 L (0.7-5.8) Baso % (Auto) 0.1 (0.1-1.2) % Neut # (Auto) 9.93 H (1.56-6.13) K/mm3 Lymph # (Auto) 0.54 L (1.18-3.74) K/mm3 [place] # (Auto) 0.73 H (0.24-0.36) K/mm3 Eos # (Auto) 0.02 L (0.04-0.36) K/mm3 Baso # (Auto) 0.01 (0.01-0.08) K/mm3 Manual Slide Review Abnormal smear Sodium 130 L (136-145) mEq/L Potassium 4.5 (3.5-5.1) mEq/L Chloride 98 (98-107) mEq/L Carbon Dioxide 28 (21-32) mEq/L Anion Gap 8.5 (5-15) BUN 8 (7-18) mg/dL Creatinine 0.6 (0.55-1.02) mg/dL Est Cr Clr Drug Dosing 58.85 mL/min Estimated GFR (MDRD) > 60 (>60) mL/min BUN/Creatinine Ratio 13.3 L (14-18) Glucose 86 (80-115) mg/dL Calcium 7.9 L (8.5-10.1) mg/dL Magnesium 1.5 L (1.8-2.4) mg/dl C-Reactive Protein 19.5 H* (<1.0) mg/dL Thierry Results Last 24 Hours: Microbiology 09/02/17 07:40 Gram Stain - Final Sputum - Expectorated Med Orders - Current: Current Medications Hydrocodone Bitart/Acetaminophen ([place] 325-5 Mg) 1 tab PO Q4H PRN PRN Reason: Pain (moderate 4-6) Albuterol/Ipratropium (Duoneb 3.0-0.5 Mg/3 Ml) 3 ml NEB Q4H PRN PRN Reason: Shortness Of Breath/wheezing Bisacodyl (Dulcolax) 5 mg PO DAILY PRN PRN Reason: Constipation Docusate Sodium (Colace) 100 mg PO BID PRN PRN Reason: Constipation Enoxaparin Sodium (Lovenox) 40 mg SUBCUT DAILY [facility] Last Admin: 09/02/17 08:47 Dose: 40 mg Guaifenesin/Phenylephrine HCl (Robitussin Dm) 5 ml PO Q4H PRN PRN Reason: Cough Hydralazine HCl (Apresoline) 20 mg IVPUSH Q4H PRN PRN Reason: Hypertension Promethazine HCl 6.25 mg/ (Sodium Chloride) 50.25 mls @ 100 mls/hr IV Q6H PRN PRN Reason: Nausea/Vomiting Sodium Chloride (Normal Saline) 1,000 mls @ 75 mls/hr IV ASDIRECTED [facility] Last Admin: 09/02/17 13:40 Dose: 75 mls/hr Levofloxacin/Dextrose 750 mg/ (Premix) 150 mls @ 100 mls/hr IV Q24H [facility] Last Admin: 09/02/17 17:24 Dose: 100 mls/hr Ketorolac Tromethamine (Toradol) 30 mg IVPUSH ONETIME [facility] Last Admin: 09/01/17 20:01 Dose: 30 mg Levothyroxine Sodium (Synthroid) 88 mcg PO ACBREAKFAST [facility] Last Admin: 09/02/17 06:42 Dose: 88 mcg Lorazepam (Ativan) 0.5 mg IV Q6H PRN PRN Reason: Anxiety Lorazepam (Ativan) 2 mg IVPUSH Q4H PRN PRN Reason: Seizures Magnesium Sulfate (Pharmacy To Dose - Magnesium Replacement) 1 dose .XX ASDIRECTED [facility] Morphine Sulfate (Morphine) 1 mg IVPUSH Q4H PRN PRN Reason: Pain (severe 7-10) Stop: 09/07/17 22:44 Ondansetron HCl (Zofran Odt) 4 mg PO Q6H PRN PRN Reason: nausea, able to take PO Ondansetron HCl (Zofran) 4 mg IV Q6H PRN PRN Reason: Nausea/Vomiting Oral Electrolytes (Thermotabs) 1 each PO BID [facility] Last Admin: 09/02/17 08:47 Dose: 1 each Polyethylene Glycol (Miralax) 17 gm PO DAILY PRN PRN Reason: Constipation Potassium Chloride (Pharmacy To Dose - Potassium Replacement) 1 dose .XX ASDIRECTED [facility] Saccharomyces Boulardii (Florastor) 250 mg PO DAILY [facility] Last Admin: 09/02/17 08:47 Dose: 250 mg Senna/Docusate Sodium (Senna Plus) 1 tab PO BID PRN PRN Reason: Constipation Temazepam (Restoril) 7.5 mg PO BEDTIME PRN PRN Reason: Sleep Discontinued Medications Acetaminophen (Tylenol) 650 mg PO ONETIME ONE Stop: 09/01/17 19:36 Last Admin: 09/01/17 19:52 Dose: 650 mg Dextrose/Sodium Chloride (Dextrose 5%-Normal Saline) 1,000 mls @ 999 mls/hr IV ASDIRECTED [facility] Last Admin: 09/01/17 20:07 Dose: 999 mls/hr Levofloxacin/Dextrose 750 mg/ (Premix) 150 mls @ 100 mls/hr IV ONETIME ONE Stop: 09/01/17 22:31 Last Admin: 09/01/17 21:35 Dose: 100 mls/hr Potassium Chloride 10 meq/ (Premix) 100 mls @ 100 mls/hr IV ONETIME ONE Stop: 09/01/17 22:01 Last Admin: 09/01/17 21:32 Dose: 100 mls/hr Dextrose/Sodium Chloride (Dextrose 5%-Normal Saline) 1,000 mls @ 150 mls/hr IV ASDIRECTED [facility] Last Admin: 09/01/17 21:30 Dose: 150 mls/hr Potassium Chloride 10 meq/ (Premix) 100 mls @ 100 mls/hr IV Q1H [facility] Stop: 09/02/17 04:59 Last Admin: 09/02/17 05:45 Dose: 100 mls/hr Magnesium Sulfate 2 gm/ Premix 50 mls @ 25 mls/hr IV ONETIME ONE Stop: 09/02/17 10:59 Last Admin: 09/02/17 08:48 Dose: 25 mls/hr - Exam Quality Assessment: No: Supplemental Oxygen General: Alert, Oriented, Cooperative, No Acute Distress HEENT: Pupils Equal, Pupils Reactive, EOMI, Mucous Membr. Moist/[place] Neck: Supple, Trachea Midline, No JVD Lungs: Normal Respiratory Effort, Rhonchi Cardiovascular: Regular Rate, Regular Rhythm GI/Abdominal Exam: Normal Bowel Sounds, Soft, Non-Tender, No Organomegaly, No Distention, No Abnormal Bruit (Female) Exam: Deferred Back Exam: Normal Inspection, Decreased Range of Motion Extremities: Normal Inspection, Normal Range of Motion, Non-Tender, No Pedal Edema, Normal Capillary Refill Peripheral Pulses: 2+: Dorsalis Pedis (L), Dorsalis Pedis (R) Skin: Warm, Dry, Intact Neurological: No New Focal Deficit Psy/Mental Status: Alert, Normal Affect, Normal Mood - Problem List Review Problem List Initiated/Reviewed/Updated: Yes - My Orders Last 24 Hours: My Active Orders 09/01/17 20:00 STREP PNEUMONIAE ANTIGEN [MREF] Stat 09/01/17 22:41 Height and Weight [RC] 04 Oxygen Therapy [RC] PRN Up With Assistance [RC] ASDIRECTED Up ad Carolyn [RC] ASDIRECTED VTE/DVT Education [RC] QSHIFT Vital Signs [RC] Q4HR Acetaminophen/HYDROcodone [[place] 325-5 MG] 1 tab PO Q4H PRN Morphine 1 mg IVPUSH Q4H PRN Resuscitation Status Routine 09/01/17 22:42 Intake and Output [RC] 04,16 09/01/17 22:44 Pulse Oximetry [RC] PRN 09/01/17 22:45 Albuterol/Ipratropium [DuoNeb 3.0-0.5 MG/3 ML] 3 ml NEB Q4H PRN Bisacodyl [Dulcolax] 5 mg PO DAILY PRN Docusate Sodium [Colace] 100 mg PO BID PRN Docusate Sodium/Sennosides [Senna Plus] 1 tab PO BID PRN LORazepam [Ativan] 0.5 mg IV Q6H PRN Ondansetron [Zofran ODT] 4 mg PO Q6H PRN Ondansetron [Zofran] 4 mg IV Q6H PRN Polyethylene Glycol 3350 [MiraLAX] 17 gm PO DAILY PRN Promethazine [Phenergan] 6.25 mg Sodium Chloride 0.9% [Normal Saline] 50 ml IV Q6H Sodium Chloride 0.9% [Normal Saline] 1,000 ml IV ASDIRECTED Temazepam [Restoril] 7.5 mg PO BEDTIME PRN 09/01/17 22:47 RT Aerosol Therapy [RC] ASDIRECTED Consult to [employer]cher [CONS] Routine Consult to Spiritual Care [CONS] Routine OT Evaluation and Treatment [CONS] Routine PT Evaluation and Treatment [CONS] Routine Respiratory Care Assess and Treatment [CONS] Routine 09/01/17 22:51 Incentive Spirometry [RT Incentive Spirometry] [RC] ASDIRECTED 09/01/17 22:52 Dextromethorphan/guaiFENesin [Robitussin DM] 5 ml PO Q4H PRN LORazepam [Ativan] 2 mg IVPUSH Q4H PRN hydrALAZINE [Apresoline] 20 mg IVPUSH Q4H PRN 09/01/17 22:54 RESPIRATORY PANEL BY PCR [MREF] Stat 09/01/17 23:00 Magnesium Rep Pharmacy to Dose [Pharmacy to Dose - Magnesium Replacement] 1 dose .XX ASDIRECTED Potassium Rep Pharmacy to Dose [Pharmacy to Dose - Potassium Replacement] 1 dose .XX ASDIRECTED 09/02/17 06:00 Levothyroxine [Synthroid] 88 mcg PO ACBREAKFAST 09/02/17 07:40 CULTURE SPUTUM + SMEAR [RM] Stat 09/02/17 09:00 Enoxaparin [Lovenox] 40 mg SUBCUT DAILY Potassium Chloride/NaCl [Thermotabs] 1 each PO BID Saccharomyces Boulardii [Florastor] 250 mg PO DAILY 09/02/17 18:00 Levofloxacin/Dextrose 5%-Water [Levaquin in D5W 750 MG/150 ML] 750 mg Premix Bag 1 bag IV Q24H 09/03/17 05:11 BASIC METABOLIC PANEL,BMP [CHEM] AM C-REACTIVE PROTEIN [CHEM] AM CBC WITH AUTO DIFF [HEME] AM MAGNESIUM [CHEM] AM 09/04/17 05:11 BASIC METABOLIC PANEL,BMP [CHEM] AM C-REACTIVE PROTEIN [CHEM] AM CBC WITH AUTO DIFF [HEME] AM MAGNESIUM [CHEM] AM 09/05/17 05:11 BASIC METABOLIC PANEL,BMP [CHEM] AM C-REACTIVE PROTEIN [CHEM] AM CBC WITH AUTO DIFF [HEME] AM MAGNESIUM [CHEM] AM 09/06/17 05:11 BASIC METABOLIC PANEL,BMP [CHEM] AM C-REACTIVE PROTEIN [CHEM] AM CBC WITH AUTO DIFF [HEME] AM MAGNESIUM [CHEM] AM 09/07/17 05:11 BASIC METABOLIC PANEL,BMP [CHEM] AM C-REACTIVE PROTEIN [CHEM] AM CBC WITH AUTO DIFF [HEME] AM MAGNESIUM [CHEM] AM - Plan Plan:: Assessment/Plan: Acute: Atypical PNA - 2/2 Strep pneumoniae - No obvious risk factors - She no longer smokes - CXR shows multiple patchy areas of opacification - CT scan: Patchy areas of increased density within both lungs - WBC is 11.67--> 11.29 and CRP 26--> 19.5 - Sputum Cx pending - Mycoplasma and Influenza screening test- negative - Continue IV Levaquin 750 mg Daily - IS as directed Hyponatremia, Improved - NA 129--> 130 - She is not on thiazide or psychotropic medications - Likely from Pulmonary Insufficiency - Thermotabs 1 tab po BID Resolved: Hypokalemia - K 2.7--> 4.5 - 2/2 inadequate intake - Replete and monitor Chronic: Hypothyroidism 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 She states, she will decide in AM if she goes AMA.
[2017-09-03] MEDS: Sodium Chloride 0.9% 1,000 ML IV SCH (02:57)
[2017-09-03] MEDS: Levothyroxine 88 MCG Tab PO SCH (06:05)
[2017-09-03] MEDS: hydrALAZINE 20 MG/ML SDV IVPUSH PRN ×2 (08:22→20:50)
[2017-09-03] MEDS: Potassium Chloride/Sodium Chloride Tab PO SCH ×2 (09:40→20:47)
[2017-09-03] MEDS: Saccharomyces Boulardii (Probiotic) 250 MG Cap PO SCH (09:42)
[2017-09-03] MEDS: Enoxaparin 40 MG/0.4 ML Syringe SUBCUT SCH (09:42)
[2017-09-03] MEDS: Magnesium Sulfate/Water 2 GM in Premix Bag 1 BAG IV SCH ×2 (09:45→12:09)
[2017-09-03] MEDS: Potassium Chloride 20 MEQ Tab.ER PO SCH ×2 (09:46→12:08)
--- NOTE | 2017-09-03 11:56 | PCM.PN ---
- General Info Date of Service: 09/03/17 Admission Dx/Problem (Free Text): Pneumonia Subjective Update: Follow Up Functional Status: Reports: Pain Controlled, Tolerating Diet, Ambulating, Urinating - Review of Systems General: Denies: Fever, Weakness, Fatigue, Malaise, Chills HEENT: Reports: No Symptoms Pulmonary: Denies: Shortness of Breath, Pleuritic Chest Pain, Cough, Sputum, Hemoptysis, Wheezing Cardiovascular: Denies: Chest Pain, Palpitations, Dyspnea on Exertion, Lightheadedness Gastrointestinal: Denies: Abdominal Pain, Decreased Appetite, Nausea, Vomiting Genitourinary: Reports: No Symptoms Musculoskeletal: Reports: No Symptoms Skin: Denies: Cyanosis, Jaundice, Mottled, Pallor, Diaphoresis, Bruising, Pruritis Neurological: Denies: Confusion, Difficulty Walking, Weakness, Gait Disturbance Psychiatric: Denies: Depression, Anxiety, Agitation, Hallucinations Systems Review Comment:: No significant overnight or acute issues. She slept pretty good last night. She report no fever or chills. She feels good and no respiratory issues. She knows she has streptococcal pneumonia. She is afebrile w/o leukocytosis. Her CRP is now down to 13 from 19.5. Her K is slightly low at 3.4 and Mg level is 1.6. - Patient Data Vitals - Most Recent: Last Vital Signs Temp 36.7 C 09/03/17 08:07 Pulse 67 09/03/17 08:07 Resp 14 09/03/17 08:07 BP 180/90 H 09/03/17 08:10 Pulse Ox 98 09/03/17 08:07 Weight - Most Recent: 44.225 kg I&O - Last 24 Hours: Intake & Output 09/02/17 09/03/17 09/03/17 22:59 06:59 14:59 Intake Total 1927 1562 330 Output Total 900 700 Balance 1027 862 330 Lab Results Last 24 Hours: Laboratory Results - last 24 hr 09/03/17 09/03/17 Range/Units 06:31 06:31 WBC 7.68 (3.98-10.04) K/mm3 RBC 3.69 L (3.98-5.22) M/mm3 Hgb 11.5 (11.2-15.7) gm/L Hct 33.5 L (34.1-44.9) % MCV 90.8 (79.4-94.8) fl MCH 31.2 (25.6-32.2) pg MCHC 34.3 (32.2-35.5) g/dl RDW Std Deviation 42.8 (36.4-46.3) fL Plt Count 318 (182-369) K/mm3 MPV 9.6 (9.4-12.3) fl Neut % (Auto) 82.1 H (34.0-71.1) % Lymph % (Auto) 8.3 L (19.3-51.7) % [place] % (Auto) 8.7 (4.7-12.5) % Eos % (Auto) 0.3 L (0.7-5.8) Baso % (Auto) 0.1 (0.1-1.2) % Neut # (Auto) 6.30 H (1.56-6.13) K/mm3 Lymph # (Auto) 0.64 L (1.18-3.74) K/mm3 [place] # (Auto) 0.67 H (0.24-0.36) K/mm3 Eos # (Auto) 0.02 L (0.04-0.36) K/mm3 Baso # (Auto) 0.01 (0.01-0.08) K/mm3 Manual Slide Review Abnormal smear Sodium 134 L (136-145) mEq/L Potassium 3.4 L (3.5-5.1) mEq/L Chloride 101 (98-107) mEq/L Carbon Dioxide 26 (21-32) mEq/L Anion Gap 10.4 (5-15) BUN 9 (7-18) mg/dL Creatinine 0.6 (0.55-1.02) mg/dL Est Cr Clr Drug Dosing 60.91 mL/min Estimated GFR (MDRD) > 60 (>60) mL/min BUN/Creatinine Ratio 15.0 (14-18) Glucose 84 (80-115) mg/dL Calcium 8.0 L (8.5-10.1) mg/dL Magnesium 1.6 L (1.8-2.4) mg/dl C-Reactive Protein 13.0 H* (<1.0) mg/dL Thierry Results Last 24 Hours: Microbiology 09/02/17 07:40 Gram Stain - Final Sputum - Expectorated Sputum Culture - Preliminary 09/02/17 04:32 Respiratory Virus Panel (PCR) (THIERRY) - Final Nasopharyngeal Swab Med Orders - Current: Current Medications Hydrocodone Bitart/Acetaminophen ([place] 325-5 Mg) 1 tab PO Q4H PRN PRN Reason: Pain (moderate 4-6) Albuterol/Ipratropium (Duoneb 3.0-0.5 Mg/3 Ml) 3 ml NEB Q4H PRN PRN Reason: Shortness Of Breath/wheezing Bisacodyl (Dulcolax) 5 mg PO DAILY PRN PRN Reason: Constipation Docusate Sodium (Colace) 100 mg PO BID PRN PRN Reason: Constipation Enoxaparin Sodium (Lovenox) 40 mg SUBCUT DAILY [facility] Last Admin: 09/03/17 09:42 Dose: 40 mg Guaifenesin/Phenylephrine HCl (Robitussin Dm) 5 ml PO Q4H PRN PRN Reason: Cough Hydralazine HCl (Apresoline) 20 mg IVPUSH Q4H PRN PRN Reason: Hypertension Last Admin: 09/03/17 08:22 Dose: 20 mg Promethazine HCl 6.25 mg/ (Sodium Chloride) 50.25 mls @ 100 mls/hr IV Q6H PRN PRN Reason: Nausea/Vomiting Sodium Chloride (Normal Saline) 1,000 mls @ 75 mls/hr IV ASDIRECTED [facility] Last Admin: 09/03/17 02:57 Dose: 75 mls/hr Magnesium Sulfate 2 gm/ Premix 50 mls @ 25 mls/hr IV Q2H [facility] Stop: 09/03/17 12:29 Last Admin: 09/03/17 09:45 Dose: 25 mls/hr Ketorolac Tromethamine (Toradol) 30 mg IVPUSH ONETIME [facility] Last Admin: 09/01/17 20:01 Dose: 30 mg Levofloxacin (Levaquin) 750 mg PO Q24H [facility] Levothyroxine Sodium (Synthroid) 88 mcg PO ACBREAKFAST [facility] Last Admin: 09/03/17 06:05 Dose: 88 mcg Lorazepam (Ativan) 0.5 mg IV Q6H PRN PRN Reason: Anxiety Lorazepam (Ativan) 2 mg IVPUSH Q4H PRN PRN Reason: Seizures Magnesium Sulfate (Pharmacy To Dose - Magnesium Replacement) 1 dose .XX ASDIRECTED [facility] Morphine Sulfate (Morphine) 1 mg IVPUSH Q4H PRN PRN Reason: Pain (severe 7-10) Stop: 09/07/17 22:44 Ondansetron HCl (Zofran Odt) 4 mg PO Q6H PRN PRN Reason: nausea, able to take PO Ondansetron HCl (Zofran) 4 mg IV Q6H PRN PRN Reason: Nausea/Vomiting Oral Electrolytes (Thermotabs) 1 each PO BID [facility] Last Admin: 09/03/17 09:40 Dose: 1 each Polyethylene Glycol (Miralax) 17 gm PO DAILY PRN PRN Reason: Constipation Potassium Chloride (Pharmacy To Dose - Potassium Replacement) 1 dose .XX ASDIRECTED [facility] Potassium Chloride (Klor-Con M20) 40 meq PO Q4H [facility] Stop: 09/03/17 12:31 Last Admin: 09/03/17 09:46 Dose: 40 meq Saccharomyces Boulardii (Florastor) 250 mg PO DAILY [facility] Last Admin: 09/03/17 09:42 Dose: 250 mg Senna/Docusate Sodium (Senna Plus) 1 tab PO BID PRN PRN Reason: Constipation Temazepam (Restoril) 7.5 mg PO BEDTIME PRN PRN Reason: Sleep Discontinued Medications Acetaminophen (Tylenol) 650 mg PO ONETIME ONE Stop: 09/01/17 19:36 Last Admin: 09/01/17 19:52 Dose: 650 mg Dextrose/Sodium Chloride (Dextrose 5%-Normal Saline) 1,000 mls @ [facility] Admin: 09/01/17 20:07 Dose: 999 mls/hr Levofloxacin/Dextrose 750 mg/ (Premix) 150 mls @ 100 mls/hr IV ONETIME ONE Stop: 09/01/17 22:31 Last Admin: 09/01/17 21:35 Dose: 100 mls/hr Potassium Chloride 10 meq/ (Premix) 100 mls @ 100 mls/hr IV ONETIME ONE Stop: 09/01/17 22:01 Last Admin: 09/01/17 21:32 Dose: 100 mls/hr Dextrose/Sodium Chloride (Dextrose 5%-Normal Saline) 1,000 mls @ [facility] Last Admin: 09/01/17 21:30 Dose: 150 mls/hr Potassium Chloride 10 meq/ (Premix) 100 mls @ 100 mls/hr IV Q1H [facility] Stop: 09/02/17 04:59 Last Admin: 09/02/17 05:45 Dose: 100 mls/hr Levofloxacin/Dextrose 750 mg/ (Premix) 150 mls @ 100 mls/hr IV Q24H [facility] Last Admin: 09/02/17 17:24 Dose: 100 mls/hr Magnesium Sulfate 2 gm/ Premix 50 mls @ 25 mls/hr IV ONETIME ONE Stop: 09/02/17 10:59 Last Admin: 09/02/17 08:48 Dose: 25 mls/hr - Exam Quality Assessment: No: Supplemental Oxygen General: Alert, Oriented, Cooperative, No Acute Distress HEENT: Pupils Equal, Pupils Reactive, EOMI, Mucous Membr. Moist/[place] Neck: Supple, Trachea Midline, No JVD, No Thyromegaly Lungs: Clear to Auscultation, Normal Respiratory Effort Cardiovascular: Regular Rate, Regular Rhythm GI/Abdominal Exam: Normal Bowel Sounds, Soft, Non-Tender, No Organomegaly, No Distention, No Abnormal Bruit (Female) Exam: Deferred Back Exam: Normal Inspection, Full Range of Motion Extremities: Normal Inspection, Normal Range of Motion, Non-Tender, No Pedal Edema, Normal Capillary Refill Peripheral Pulses: 2+: Posterior Tibial (L), Posterior Tibial (R), Dorsalis Pedis (L), Dorsalis Pedis (R) Skin: Warm, Dry, Intact Neurological: No New Focal Deficit Psy/Mental Status: Alert, Normal Affect, Normal Mood - Problem List Review Problem List Initiated/Reviewed/Updated: Yes - My Orders Last 24 Hours: My Active Orders 09/03/17 08:30 Magnesium Sulfate/Water [Magnesium Sulfate 2 GM in Water 50 ML] 2 gm Premix Bag 1 bag IV Q2H Potassium Chloride [Klor-Con M20] 40 meq PO Q4H 09/03/17 18:00 Levofloxacin [Levaquin] 750 mg PO Q24H 09/04/17 05:11 BASIC METABOLIC PANEL,BMP [CHEM] AM C-REACTIVE PROTEIN [CHEM] AM CBC WITH AUTO DIFF [HEME] AM MAGNESIUM [CHEM] AM 09/05/17 05:11 BASIC METABOLIC PANEL,BMP [CHEM] AM C-REACTIVE PROTEIN [CHEM] AM CBC WITH AUTO DIFF [HEME] AM MAGNESIUM [CHEM] AM 09/06/17 05:11 BASIC METABOLIC PANEL,BMP [CHEM] AM C-REACTIVE PROTEIN [CHEM] AM CBC WITH AUTO DIFF [HEME] AM MAGNESIUM [CHEM] AM 09/07/17 05:11 BASIC METABOLIC PANEL,BMP [CHEM] AM C-REACTIVE PROTEIN [CHEM] AM CBC WITH AUTO DIFF [HEME] AM MAGNESIUM [CHEM] AM - Plan Plan:: Assessment/Plan: Acute: Atypical PNA - 2/2 Strep pneumoniae - No obvious risk factors - She no longer smokes - CXR shows multiple patchy areas of opacification - CT scan: Patchy areas of increased density within both lungs - WBC is 11.67--> 11.29--> 7.68 and CRP 26--> 19.5--> 13.0 - Sputum Cx: no reportable organism - Mycoplasma and Influenza screening test- negative - Continue IV Levaquin 750 mg Daily - IS as directed Hyponatremia, Improved - NA 129--> 130--> 134 - She is not on thiazide or psychotropic medications - Likely from Pulmonary Insufficiency - Thermotabs 1 tab po BID Hypokalemia - K 2.7--> 4.5--> 3.4 - 2/2 inadequate intake - Replete and monitor Hypomagnesemia - Mg 1.5---> 1.6 - 2/2 inadequate intake - Replete and monitor Chronic: Hypothyroidism 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
[2017-09-03] MEDS: Levofloxacin 750 MG Tab PO SCH (17:37)
[2017-09-03] MEDS ORDERED: Bumetanide 1 MG/4 ML MDV IVPUSH ONE (20:31)
[2017-09-04] MEDS: Levothyroxine 88 MCG Tab PO SCH (06:24)
--- NOTE | 2017-09-04 07:05 | PCM.PN ---
- General Info Date of Service: 09/04/17 Admission Dx/Problem (Free Text): Pneumonia Subjective Update: Follow Up Functional Status: Reports: Pain Controlled, Tolerating Diet, Ambulating, Urinating, Incentive Spirometry - Review of Systems General: Reports: Weakness (on legs). Denies: Fever, Fatigue, Malaise, Chills, Night Sweats, Appetite, Other HEENT: Reports: No Symptoms Pulmonary: Denies: Shortness of Breath, Cough, Sputum, Hemoptysis, Wheezing Cardiovascular: Denies: Chest Pain, Palpitations, Dyspnea on Exertion, Edema, Lightheadedness Gastrointestinal: Reports: Nausea, Other (Not really hungry). Denies: Abdominal Pain, Constipation, Decreased Appetite, Diarrhea, Difficulty Swallowing, Melena, Vomiting Musculoskeletal: Reports: Back Pain Skin: Denies: Cyanosis, Mottled, Pallor, Diaphoresis, Rash Neurological: Denies: Confusion, Difficulty Walking, Weakness, Gait Disturbance Psychiatric: Denies: Depression, Anxiety, Hallucinations Systems Review Comment:: She did not slept well last night. She was nauseous and feels weak on legs. She has no issues with appetite but she is not eating. She remains afebrile with normal WBC. She has no other complaints. - Patient Data Vitals - Most Recent: Last Vital Signs Temp 37.3 C 09/04/17 02:56 Pulse 99 09/04/17 02:56 Resp 15 09/04/17 02:56 BP 134/86 09/04/17 03:27 Pulse Ox 97 09/04/17 02:56 Weight - Most Recent: 44.588 kg I&O - Last 24 Hours: Intake & Output 09/03/17 09/04/17 09/04/17 22:59 06:59 14:59 Intake Total 1220 1550 Output Total 1350 1350 Balance -130 200 Lab Results Last 24 Hours: Laboratory Results - last 24 hr 09/03/17 09/03/17 09/04/17 Range/Units 06:31 06:31 06:17 WBC 7.68 6.05 (3.98-10.04) K/mm3 RBC 3.69 L 4.10 (3.98-5.22) M/mm3 Hgb 11.5 12.4 (11.2-15.7) gm/L Hct 33.5 L 37.0 (34.1-44.9) % MCV 90.8 90.2 (79.4-94.8) fl MCH 31.2 30.2 (25.6-32.2) pg MCHC 34.3 33.5 (32.2-35.5) g/dl RDW Std Deviation 42.8 43.0 (36.4-46.3) fL Plt Count 318 422 H (182-369) K/mm3 MPV 9.6 8.9 L (9.4-12.3) fl Neut % (Auto) 82.1 H 79.0 H (34.0-71.1) % Lymph % (Auto) 8.3 L 9.8 L (19.3-51.7) % [place] % (Auto) 8.7 9.8 (4.7-12.5) % Eos % (Auto) 0.3 L 0.7 (0.7-5.8) Baso % (Auto) 0.1 0.0 L (0.1-1.2) % Neut # (Auto) 6.30 H 4.79 (1.56-6.13) K/mm3 Lymph # (Auto) 0.64 L 0.59 L (1.18-3.74) K/mm3 [place] # (Auto) 0.67 H 0.59 H (0.24-0.36) K/mm3 Eos # (Auto) 0.02 L 0.04 (0.04-0.36) K/mm3 Baso # (Auto) 0.01 0.00 L (0.01-0.08) K/mm3 Manual Slide Review Abnormal smear Sodium 134 L (136-145) mEq/L Potassium 3.4 L (3.5-5.1) mEq/L Chloride 101 (98-107) mEq/L Carbon Dioxide 26 (21-32) mEq/L Anion Gap 10.4 (5-15) BUN 9 (7-18) mg/dL Creatinine 0.6 (0.55-1.02) mg/dL Est Cr Clr Drug Dosing 60.91 mL/min Estimated GFR (MDRD) > 60 (>60) mL/min BUN/Creatinine Ratio 15.0 (14-18) Glucose 84 (80-115) mg/dL Calcium 8.0 L (8.5-10.1) mg/dL Magnesium 1.6 L (1.8-2.4) mg/dl C-Reactive Protein 13.0 H* (<1.0) mg/dL Thierry Results Last 24 Hours: Microbiology 09/02/17 07:40 Gram Stain - Final Sputum - Expectorated Sputum Culture - Preliminary Med Orders - Current: Current Medications Hydrocodone Bitart/Acetaminophen ([place] 325-5 Mg) 1 tab PO Q4H PRN PRN Reason: Pain (moderate 4-6) Albuterol/Ipratropium (Duoneb 3.0-0.5 Mg/3 Ml) 3 ml NEB Q4H PRN PRN Reason: Shortness Of Breath/wheezing Bisacodyl (Dulcolax) 5 mg PO DAILY PRN PRN Reason: Constipation Docusate Sodium (Colace) 100 mg PO BID PRN PRN Reason: Constipation Enoxaparin Sodium (Lovenox) 40 mg SUBCUT DAILY [facility] Last Admin: 09/03/17 09:42 Dose: 40 mg Guaifenesin/Phenylephrine HCl (Robitussin Dm) 5 ml PO Q4H PRN PRN Reason: Cough Hydralazine HCl (Apresoline) 20 mg IVPUSH Q4H PRN PRN Reason: Hypertension Last Admin: 09/03/17 20:50 Dose: 20 mg Promethazine HCl 6.25 mg/ (Sodium Chloride) 50.25 mls @ 100 mls/hr IV Q6H PRN PRN Reason: Nausea/Vomiting Ketorolac Tromethamine (Toradol) 30 mg IVPUSH ONETIME [facility] Last Admin: 09/01/17 20:01 Dose: 30 mg Levofloxacin (Levaquin) 750 mg PO Q24H [facility] Last Admin: 09/03/17 17:37 Dose: 750 mg Levothyroxine Sodium (Synthroid) 88 mcg PO ACBREAKFAST [facility] Last Admin: 09/04/17 06:24 Dose: 88 mcg Lorazepam (Ativan) 0.5 mg IV Q6H PRN PRN Reason: Anxiety Lorazepam (Ativan) 2 mg IVPUSH Q4H PRN PRN Reason: Seizures Magnesium Sulfate (Pharmacy To Dose - Magnesium Replacement) 1 dose .XX ASDIRECTED [facility] Morphine Sulfate (Morphine) 1 mg IVPUSH Q4H PRN PRN Reason: Pain (severe 7-10) Stop: 09/07/17 22:44 Ondansetron HCl (Zofran Odt) 4 mg PO Q6H PRN PRN Reason: nausea, able to take PO Ondansetron HCl (Zofran) 4 mg IV Q6H PRN PRN Reason: Nausea/Vomiting Last Admin: 09/03/17 23:28 Dose: 4 mg Oral Electrolytes (Thermotabs) 1 each PO BID [facility] Last Admin: 09/03/17 20:47 Dose: 1 each Polyethylene Glycol (Miralax) 17 gm PO DAILY PRN PRN Reason: Constipation Potassium Chloride (Pharmacy To Dose - Potassium Replacement) 1 dose .XX ASDIRECTED [facility] Saccharomyces Boulardii (Florastor) 250 mg PO DAILY [facility] Last Admin: 09/03/17 09:42 Dose: 250 mg Senna/Docusate Sodium (Senna Plus) 1 tab PO BID PRN PRN Reason: Constipation Temazepam (Restoril) 7.5 mg PO BEDTIME PRN PRN Reason: Sleep Discontinued Medications Acetaminophen (Tylenol) 650 mg PO ONETIME ONE Stop: 09/01/17 19:36 Last Admin: 09/01/17 19:52 Dose: 650 mg Bumetanide (Bumex) 0.5 mg IVPUSH ONETIME ONE Stop: 09/03/17 20:32 Last Admin: 09/03/17 20:47 Dose: 0.5 mg Dextrose/Sodium Chloride (Dextrose 5%-Normal Saline) 1,000 mls @ 999 mls/hr IV ASDIRECTED [facility] Last Admin: 09/01/17 20:07 Dose: 999 mls/hr Levofloxacin/Dextrose 750 mg/ (Premix) 150 mls @ 100 mls/hr IV ONETIME ONE Stop: 09/01/17 22:31 Last Admin: 09/01/17 21:35 Dose: 100 mls/hr Potassium Chloride 10 meq/ (Premix) 100 mls @ 100 mls/hr IV ONETIME ONE Stop: 09/01/17 22:01 Last Admin: 09/01/17 21:32 Dose: 100 mls/hr Dextrose/Sodium Chloride (Dextrose 5%-Normal Saline) 1,000 mls @ 150 mls/hr IV ASDIRECTED [facility] Last Admin: 09/01/17 21:30 Dose: 150 mls/hr Sodium Chloride (Normal Saline) 1,000 mls @ 75 mls/hr IV ASDIRECTED [facility] Last Admin: 09/03/17 02:57 Dose: 75 mls/hr Potassium Chloride 10 meq/ (Premix) 100 mls @ 100 mls/hr IV Q1H [facility] Stop: 09/02/17 04:59 Last Admin: 09/02/17 05:45 Dose: 100 mls/hr Levofloxacin/Dextrose 750 mg/ (Premix) 150 mls @ 100 mls/hr IV Q24H [facility] Last Admin: 09/02/17 17:24 Dose: 100 mls/hr Magnesium Sulfate 2 gm/ Premix 50 mls @ 25 mls/hr IV ONETIME ONE Stop: 09/02/17 10:59 Last Admin: 09/02/17 08:48 Dose: 25 mls/hr Magnesium Sulfate 2 gm/ Premix 50 mls @ 25 mls/hr IV Q2H [facility] Stop: 09/03/17 12:29 Last Admin: 09/03/17 12:09 Dose: 25 mls/hr Potassium Chloride (Klor-Con M20) 40 meq PO Q4H [facility] Stop: 09/03/17 12:31 Last Admin: 09/03/17 12:08 Dose: 40 meq - Exam Quality Assessment: No: Supplemental Oxygen General: Alert, Oriented, Cooperative, No Acute Distress HEENT: Pupils Equal, Pupils Reactive, EOMI, Mucous Membr. Moist/[place] Neck: Supple, Trachea Midline Lungs: Clear to Auscultation, Normal Respiratory Effort Cardiovascular: Regular Rate, Regular Rhythm GI/Abdominal Exam: Normal Bowel Sounds, Soft, Non-Tender, No Organomegaly, No Distention, No Abnormal Bruit, No Mass (Female) Exam: Deferred Back Exam: Normal Inspection, Full Range of Motion Extremities: Normal Inspection, Normal Range of Motion, Non-Tender, No Pedal Edema, Normal Capillary Refill Peripheral Pulses: 2+: Dorsalis Pedis (L), Dorsalis Pedis (R) Skin: Warm, Dry, Intact Neurological: No New Focal Deficit Psy/Mental Status: Alert, Normal Affect, Normal Mood - Problem List Review Problem List Initiated/Reviewed/Updated: Yes - My Orders Last 24 Hours: My Active Orders 09/03/17 18:00 Levofloxacin [Levaquin] 750 mg PO Q24H 09/04/17 06:17 BASIC METABOLIC PANEL,BMP [CHEM] AM C-REACTIVE PROTEIN [CHEM] AM CBC WITH AUTO DIFF [HEME] AM MAGNESIUM [CHEM] AM 09/05/17 05:11 BASIC METABOLIC PANEL,BMP [CHEM] AM C-REACTIVE PROTEIN [CHEM] AM CBC WITH AUTO DIFF [HEME] AM MAGNESIUM [CHEM] AM 09/06/17 05:11 BASIC METABOLIC PANEL,BMP [CHEM] AM C-REACTIVE PROTEIN [CHEM] AM CBC WITH AUTO DIFF [HEME] AM MAGNESIUM [CHEM] AM 09/07/17 05:11 BASIC METABOLIC PANEL,BMP [CHEM] AM C-REACTIVE PROTEIN [CHEM] AM CBC WITH AUTO DIFF [HEME] AM MAGNESIUM [CHEM] AM - Plan Plan:: Assessment/Plan: Acute: Atypical PNA, Improving - 2/2 Strep pneumoniae - No obvious risk factors - She no longer smokes - CXR shows multiple patchy areas of opacification - CT scan: Patchy areas of increased density within both lungs - WBC is 11.67--> 11.29--> 7.68--> 6.05 and CRP 26--> 19.5--> 13.0--> 10.3 - Sputum Cx: no reportable organism - Mycoplasma and Influenza screening test- negative - Continue IV Levaquin 750 mg Daily - IS as directed Hyponatremia, Improved - NA 129--> 130--> 134-->132 - She is not on thiazide or psychotropic medications - Likely from Pulmonary Insufficiency - Thermotabs 1 tab po BID--> 2 tabs po BID Resolved: Hypokalemia - K 2.7--> 4.5--> 3.4--> 3.9 - 2/2 inadequate intake - Replete and monitor Hypomagnesemia - Mg 1.5---> 1.6--> 1.8 - 2/2 inadequate intake - Replete and monitor Chronic: Hypothyroidism 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
[2017-09-04] MEDS: Potassium Chloride/Sodium Chloride Tab PO SCH ×2 (09:54→20:09)
[2017-09-04] MEDS: Saccharomyces Boulardii (Probiotic) 250 MG Cap PO SCH (09:54)
[2017-09-04] MEDS: Enoxaparin 40 MG/0.4 ML Syringe SUBCUT SCH (09:55)
[2017-09-04] MEDS: hydrALAZINE 20 MG/ML SDV IVPUSH PRN ×2 (10:07→22:29)
[2017-09-04] MEDS: Levofloxacin 750 MG Tab PO SCH (17:40)
[2017-09-05] MEDS: Levothyroxine 88 MCG Tab PO SCH (05:08)
[2017-09-05] MEDS ORDERED: Magnesium Sulfate/Water 2 GM in Premix Bag 1 BAG IV ONE (08:30)
[2017-09-05] MEDS ORDERED: Potassium Chloride/Sodium Chloride Tab PO SCH (09:00)
[2017-09-05] MEDS: Saccharomyces Boulardii (Probiotic) 250 MG Cap PO SCH (09:14)
[2017-09-05] MEDS: Enoxaparin 40 MG/0.4 ML Syringe SUBCUT SCH (09:17)
--- NOTE | 2017-09-05 09:49 | PCM.DCSUM1 ---
Discharge Summary - Hospital Course Brief History: This is a 72 yo elderly white female with no significant past medical hx/o except for hypothyroidism who comes in for evaluation of febrile illness associated with paroxysmal productive cough, body aches/pain and headaches that stated this past Friday. Her appetite is marginal. She has been mostly bedridden for at least a week now. - Discharge Data Discharge Date: 09/05/17 Discharge Disposition: Home, Self-Care 01 Condition: Good - Discharge Diagnosis/Problem(s) (1) Pneumonia SNOMED Code(s): 454527712 ICD Code: J18.9 - PNEUMONIA, UNSPECIFIED ORGANISM Status: Acute Qualifiers: Pneumonia type: due to Pneumococcus Laterality: bilateral Lung location: unspecified part of lung Qualified Code(s): J13 - Pneumonia due to Streptococcus pneumoniae (2) Hyponatremia SNOMED Code(s): 37983281 ICD Code: E87.1 - HYPO-OSMOLALITY AND HYPONATREMIA Status: Acute (3) Hypokalemia due to inadequate potassium intake SNOMED Code(s): 44604370 ICD Code: E87.6 - HYPOKALEMIA Status: Resolved (4) Hypomagnesemia SNOMED Code(s): 249564340 ICD Code: E83.42 - HYPOMAGNESEMIA Status: Acute - Patient Summary/Data Operative Procedure(s) Performed: None Complications: None Consults: Consultations 09/01/17 22:47 Consult to Sweatband Flanger [CONS] Routine Consult to Spiritual Care [CONS] Routine OT Evaluation and Treatment [CONS] Routine PT Evaluation and Treatment [CONS] Routine Respiratory Care Assess and Treatment [CONS] Routine Labs Pending at D/C: None Recommended Follow-up Testing/Procedures: None Planned Operative Procedure(s) after DC: None Hospital Course: Patient was primarily admitted for medical treatment of pneumonia. She was found to have multiple patchy areas on chest x-ray. Her mycoplasma pneumoniae antigen was negative but she was positive for strep pneumoniae. Patient received appropriate treatment to include antibiotics, bronchodilators, decongestion and expectorant to resolve her symptoms. The patient improved on this regimen. Her hospital course was uncomplicated except for electrolytes abnormality associated with inadequate oral intake. However we were quick to address it with supplementation. Patient was stable upon discharge. She will have additional course of oral antibiotic along with probiotic. She was advised to see her primary care doctors in 2 weeks with a follow-up chest x-ray. She was further advised to come back or seek immediate care should her symptoms persist or get worse. The patient expressed understanding and in agreement with the plans as discussed above. All questions were answered. - Patient Instructions Diet: Usual Diet as Tolerated Fluid Restriction: 1500 mL Activity: As Tolerated Driving: May Drive Today Showering/Bathing: May Shower Notify Provider of: Fever, Increased Pain, Nausea and/or Vomiting Other/Special Instructions: - Please all medications as directed. - Continue to use incentive spirometry as directed. - Recommend a follow up CXR in 2 weeks for resolution of pneumonia. - Follow up with your doctor in 2 weeks. - Call your doctor for any questions or concerns after discharge. - Come back or seek immediate care should your symptoms persist or get worse - Discharge Plan Prescriptions/Med Rec: Levofloxacin [Levaquin] 750 mg PO Q24H #2 tablet Saccharomyces Boulardii [Florastor] 250 mg PO DAILY #2 cap Home Medications: Home Meds Levothyroxine [Synthroid] 88 mcg PO ACBREAKFAST 09/01/17 [History] Levofloxacin [Levaquin] 750 mg PO Q24H #2 tablet 09/05/17 [Rx] Saccharomyces Boulardii [Florastor] 250 mg PO DAILY #2 cap 09/05/17 [Rx] Patient Handouts: Hyponatremia, [id number], Community-Acquired Pneumonia, Adult, [id number] Referrals: Abdon Jeter MD [Primary Care Provider] - 09/15/17 12:10 pm (Please follow up with Dr. Jeter on September 15 at 1210.) - Discharge Summary/Plan Comment DC Time >30 min.: Yes (45 mins) Discharge Summary/Plan Comment: Discharge to Home - General Info Date of Service: 09/05/17 Admission Dx/Problem (Free Text: Pneumonia Subjective Update: Follow Up Functional Status: Reports: Pain Controlled, Tolerating Diet, Ambulating, Urinating - Review of Systems General: Denies: Fever, Weakness, Fatigue, Malaise, Chills, Night Sweats HEENT: Reports: No Symptoms Pulmonary: Denies: Shortness of Breath, Pleuritic Chest Pain, Cough, Sputum Cardiovascular: Denies: Chest Pain, Palpitations, Dyspnea on Exertion, Edema, Lightheadedness Gastrointestinal: Reports: Flatus. Denies: Abdominal Pain, Constipation, Decreased Appetite, Diarrhea, Difficulty Swallowing, Nausea, Vomiting Genitourinary: Reports: No Symptoms Musculoskeletal: Reports: No Symptoms Skin: Denies: Cyanosis, Jaundice, Mottled, Pallor, Diaphoresis, Rash Neurological: Denies: Confusion, Difficulty Walking, Weakness, Gait Disturbance Psychiatric: Denies: Depression, Anxiety, Agitation, Hallucinations Systems Review Comment: No overnight or acute issues. She slept well last night. She feels pretty good this morning. She has no new complaints. Her repeat CXR shows improved abnormal lung findings. - Patient Data Vitals - Most Recent: Last Vital Signs Temp 37.2 C 09/05/17 07:34 Pulse 85 09/05/17 07:34 Resp 14 09/05/17 07:34 BP 153/91 H 09/05/17 07:35 Pulse Ox 99 09/05/17 07:34 Weight - Most Recent: 44.77 kg I&O - Last 24 hours: Intake & Output 09/04/17 09/05/17 09/05/17 22:59 06:59 14:59 Intake Total 1360 500 Output Total 750 700 Balance 610 -200 Lab Results - Last 24 hrs: Laboratory Results - last 24 hr 09/05/17 09/05/17 Range/Units 06:04 06:04 WBC 6.23 (3.98-10.04) K/mm3 RBC 3.83 L (3.98-5.22) M/mm3 Hgb 11.7 (11.2-15.7) gm/L Hct 34.5 (34.1-44.9) % MCV 90.1 (79.4-94.8) fl MCH 30.5 (25.6-32.2) pg MCHC 33.9 (32.2-35.5) g/dl RDW Std Deviation 42.4 (36.4-46.3) fL Plt Count 455 H (182-369) K/mm3 MPV 9.0 L (9.4-12.3) fl Neut % (Auto) 74.3 H (34.0-71.1) % Lymph % (Auto) 11.4 L (19.3-51.7) % [place] % (Auto) 12.5 (4.7-12.5) % Eos % (Auto) 0.6 L (0.7-5.8) Baso % (Auto) 0.2 (0.1-1.2) % Neut # (Auto) 4.63 (1.56-6.13) K/mm3 Lymph # (Auto) 0.71 L (1.18-3.74) K/mm3 [place] # (Auto) 0.78 H (0.24-0.36) K/mm3 Eos # (Auto) 0.04 (0.04-0.36) K/mm3 Baso # (Auto) 0.01 (0.01-0.08) K/mm3 Sodium 128 L (136-145) mEq/L Potassium 3.6 (3.5-5.1) mEq/L Chloride 95 L (98-107) mEq/L Carbon Dioxide 27 (21-32) mEq/L Anion Gap 9.6 (5-15) BUN 14 (7-18) mg/dL Creatinine 0.6 (0.55-1.02) mg/dL Est Cr Clr Drug Dosing 61.66 mL/min Estimated GFR (MDRD) > 60 (>60) mL/min BUN/Creatinine Ratio 23.3 H (14-18) Glucose 95 (80-115) mg/dL Calcium 8.2 L (8.5-10.1) mg/dL Magnesium 1.6 L (1.8-2.4) mg/dl C-Reactive Protein 5.5 H* (<1.0) mg/dL [facility] Results - Last 24 hrs: Microbiology 09/02/17 07:40 Gram Stain - Final Sputum - Expectorated Sputum Culture - Final NORMAL [facility]PIRAT[facility] GEENA 2 DAYS Med Orders - Current: Current Medications Hydrocodone Bitart/Acetaminophen ([place] 325-5 Mg) 1 tab PO Q4H PRN PRN Reason: Pain (moderate 4-6) Albuterol/Ipratropium (Duoneb 3.0-0.5 Mg/3 Ml) 3 ml NEB Q4H PRN PRN Reason: Shortness Of Breath/wheezing Bisacodyl (Dulcolax) 5 mg PO DAILY PRN PRN Reason: Constipation Docusate Sodium (Colace) 100 mg PO BID PRN PRN Reason: Constipation Enoxaparin Sodium (Lovenox) 40 mg SUBCUT DAILY [facility] Last Admin: 09/05/17 09:17 Dose: 40 mg Guaifenesin/Phenylephrine HCl (Robitussin Dm) 5 ml PO Q4H PRN PRN Reason: Cough Hydralazine HCl (Apresoline) 20 mg IVPUSH Q4H PRN PRN Reason: Hypertension Last Admin: 09/04/17 22:29 Dose: 20 mg Promethazine HCl 6.25 mg/ (Sodium Chloride) 50.25 mls @ 100 mls/hr IV Q6H PRN PRN Reason: Nausea/Vomiting Magnesium Sulfate 2 gm/ Premix 50 mls @ 25 mls/hr IV ONETIME ONE Stop: 09/05/17 10:29 Last Admin: 09/05/17 09:11 Dose: 25 mls/hr Levofloxacin (Levaquin) 750 mg PO Q24H [facility] Last Admin: 09/04/17 17:40 Dose: 750 mg Levothyroxine Sodium (Synthroid) 88 mcg PO ACBREAKFAST [facility] Last Admin: 09/05/17 05:08 Dose: 88 mcg Lorazepam (Ativan) 0.5 mg IV Q6H PRN PRN Reason: Anxiety Lorazepam (Ativan) 2 mg IVPUSH Q4H PRN PRN Reason: Seizures Magnesium Sulfate (Pharmacy To Dose - Magnesium Replacement) 1 dose .XX ASDIRECTED [facility] Morphine Sulfate (Morphine) 1 mg IVPUSH Q4H PRN PRN Reason: Pain (severe 7-10) Stop: 09/07/17 22:44 Ondansetron HCl (Zofran Odt) 4 mg PO Q6H PRN PRN Reason: nausea, able to take PO Ondansetron HCl (Zofran) 4 mg IV Q6H PRN PRN Reason: Nausea/Vomiting Last Admin: 09/03/17 23:28 Dose: 4 mg Oral Electrolytes (Thermotabs) 2 each PO BID [facility] Last Admin: 09/05/17 09:14 Dose: 2 each Polyethylene Glycol (Miralax) 17 gm PO DAILY PRN PRN Reason: Constipation Potassium Chloride (Pharmacy To Dose - Potassium Replacement) 1 dose .XX ASDIRECTED [facility] Saccharomyces Boulardii (Florastor) 250 mg PO DAILY [facility] Last Admin: 09/05/17 09:14 Dose: 250 mg Senna/Docusate Sodium (Senna Plus) 1 tab PO BID PRN PRN Reason: Constipation Temazepam (Restoril) 7.5 mg PO BEDTIME PRN PRN Reason: Sleep Discontinued Medications Acetaminophen (Tylenol) 650 mg PO ONETIME ONE Stop: 09/01/17 19:36 Last Admin: 09/01/17 19:52 Dose: 650 mg Bumetanide (Bumex) 0.5 mg IVPUSH ONETIME ONE Stop: 09/03/17 20:32 Last Admin: 09/03/17 20:47 Dose: 0.5 mg Dextrose/Sodium Chloride (Dextrose 5%-Normal Saline) 1,000 mls @ 999 [facility]ls[facility] Last Admin: 09/01/17 20:07 Dose: 999 mls/hr Levofloxacin/Dextrose 750 mg/ (Premix) 150 mls @ 100 mls/hr IV ONETIME ONE Stop: 09/01/17 22:31 Last Admin: 09/01/17 21:35 Dose: 100 mls/hr Potassium Chloride 10 meq/ (Premix) 100 mls @ 100 mls/hr IV ONETIME ONE Stop: 09/01/17 22:01 Last Admin: 09/01/17 21:32 Dose: 100 mls/hr Dextrose/Sodium Chloride (Dextrose 5%-Normal Saline) 1,000 mls @ 150 [facility]ls[facility] Last Admin: 09/01/17 21:30 Dose: 150 mls/hr Sodium Chloride (Normal Saline) 1,000 mls @ 75 mls[facility]hr [facility] Last Admin: 09/03/17 02:57 Dose: 75 mls/hr Potassium Chloride 10 meq/ (Premix) 100 mls @ 100 mls/hr IV Q1H [facility] Stop: 09/02/17 04:59 Last Admin: 09/02/17 05:45 Dose: 100 mls/hr Levofloxacin/Dextrose 750 mg/ (Premix) 150 mls @ 100 mls/hr IV Q24H [facility] Last Admin: 09/02/17 17:24 Dose: 100 mls/hr Magnesium Sulfate 2 gm/ Premix 50 mls @ 25 mls/hr IV ONETIME ONE Stop: 09/02/17 10:59 Last Admin: 09/02/17 08:48 Dose: 25 mls/hr Magnesium Sulfate 2 gm/ Premix 50 mls @ 25 mls/hr IV Q2H [facility] Stop: 09/03/17 12:29 Last Admin: 09/03/17 12:09 Dose: 25 mls/hr Magnesium Sulfate/Dextrose 1 (gm/ Premix) 100 mls @ 100 mls/hr IV ONETIME ONE Stop: 09/05/17 10:12 Ketorolac Tromethamine (Toradol) 30 mg IVPUSH ONETIME [facility] Last Admin: 09/01/17 20:01 Dose: 30 mg Oral Electrolytes (Thermotabs) 1 each PO BID [facility] Last Admin: 09/04/17 20:09 Dose: 1 each Potassium Chloride (Klor-Con M20) 40 meq PO Q4H [facility] Stop: 09/03/17 12:31 Last Admin: 09/03/17 12:08 Dose: 40 meq - Exam General: Reports: Alert, Oriented, Cooperative, No Acute Distress HEENT: Reports: Pupils Equal, Pupils Reactive, EOMI, Mucous Membr. Moist/[place], Other (Hard of hearing) Neck: Reports: Supple, Trachea Midline, No JVD, No Thyromegaly Lungs: Reports: Clear to Auscultation, Normal Respiratory Effort Cardiovascular: Reports: Regular Rate, Regular Rhythm GI/Abdominal Exam: Normal Bowel Sounds, Soft, Non-Tender, No Organomegaly, No Distention, No Abnormal Bruit, No Mass (Female) Exam: Deferred Rectal (Female) Exam: Deferred Back Exam: Reports: Normal Inspection, Full Range of Motion Extremities: Normal Inspection, Normal Range of Motion, Non-Tender, No Pedal Edema, Normal Capillary Refill Skin: Reports: Warm, Dry, Intact Neurological: Reports: No New Focal Deficit Psy/Mental Status: Reports: Alert, Normal Affect, Normal Mood *Q Meaningful Use (DIS) - VTE *Q VTE Criteria *Q: - Stroke *Q Stroke Criteria *Q: - AMI *Q AMI Criteria *Q:
--- NOTE | 2017-09-05 10:11 | CR ---
Chest: Frontal view of the chest was obtained. Comparison: Prior chest x-ray of 09/01/[address] of 09/02/17. Increased density noted within the right lung base. This shows improvement from previous exam. Previous study also showed parenchymal densities within the left base which are improved. Lung markings have also improved from prior study within both sides of the chest. Stable apical pleural thickening is seen. Heart size and mediastinum are within normal limits. Bony structures are osteopenic. Impression: 1. Improved appearance of the chest from previous study of 09/01/17. Nothing acute is seen. Diagnostic code #2
== END 2017-09-05 13:35 | disposition home or self-care (01) | DRG 194 ==
LOC: JD.ED 19:06 → JD.MS 22:32
PROVIDERS: ADMIT Internal Medicine; ATTEND Internal Medicine
DX: J18.9 Pneumonia, unspecified organism (principal); J13 Pneumonia due to Streptococcus pneumoniae; E87.1 Hypo-osmolality and hyponatremia; E87.6 Hypokalemia; E83.42 Hypomagnesemia; E03.9 Hypothyroidism, unspecified; E53.8 Deficiency of other specified B group vitamins; Z87.891 Personal history of nicotine dependence; Z79.899 Other long term (current) drug therapy
CPT/HCPCS: 36415; 71045; 80053; 81001; 85025; 85652; 86140; 86738; 87040 ×2; 87086; 87804 ×2; 87899; 96361; 96365; 96368; 96375; 99285; A9270; J1885; J1956; J3480; J7042 ×2; 71250; 71250-26; 80048; 83735; 87070; 87205; 87486; 87581; 87633; 87798; 97161-GP; 97165-GO; J0360; J1650; J2405; J3475; J7040

== ENCOUNTER 2017-09-07 09:56 | Emergency (ER) | payer MEDICARE, BC ==
--- NOTE | 2017-09-07 11:24 | EDM.PDOC ---
ED HPI GENERAL MEDICAL PROBLEM - General Chief Complaint: Cardiovascular Problem Stated Complaint: RT HAND AND BOTH ANKLES SWELLING Time Seen by Provider: 09/07/17 11:05 Source of Information: Reports: Patient History Limitations: Reports: No Limitations - History of Present Illness INITIAL COMMENTS - FREE TEXT/NARRATIVE: Patient is a 72-year-old female who was recently discharged from the hospital this past Friday. Patient is being treated for pneumonia from 09/01-09/05. During her hospital stay patient states she developed swelling to her lower extremities and was given a IV diuretic due to fluid overload. 2nd to IVF. Other then pneumonia patient was diagnosed with hyponatremia, hypokalemia, and hypo-magnesium as well. She was discharged home on Levaquin. She's been taking as prescribed. States with returning home this past Friday she was on her feet most hours of the day cleaning and put away clothes. Over the course the weekend she noticed some mild swelling to her lower extremities. This morning awoke and had a small spot on her right hand that was swollen as well in comparison to her left. States their is no change with lying flat at night while sleeping to lower extremity swelling. There is no orthopnea or PND. She denies any shortness of breath or chest pain. There's been no documented fever as well. In addition yesterday while wringing out a washcloth she had some pain to her right hand along the first metacarpal that may precipitated the swelling. There's been no recent trauma or other activities that have a precipitated the pain. Otherwise she has no additional complaints at this time. Patient states she's been eating well with no issues. - Related Data Allergies Allergy/AdvReac Type Severity Reaction Status Date / Time No Known Allergies Allergy Verified 09/01/17 22:39 Home Meds: Home Meds Levothyroxine [Synthroid] 88 mcg PO ACBREAKFAST 09/01/17 [History] Levofloxacin [Levaquin] 750 mg PO Q24H #2 tablet 09/05/17 [Rx] Saccharomyces Boulardii [Florastor] 250 mg PO DAILY #2 cap 09/05/17 [Rx] Acetaminophen 1 - 2 tab PO Q6H PRN 09/07/17 [History] Aspirin 1 tab PO DAILY 09/07/17 [History] Omeprazole Magnesium [Prilosec Otc] 1 tab PO ACBREAKFAST 09/07/17 [History] Past Medical History - Past Health History Medical/Surgical History: Denies Medical/Surgical History HEENT History: Reports: Hard of Hearing, Impaired Vision Gastrointestinal History: Reports: GERD Musculoskeletal History: Reports: Arthritis Psychiatric History: Reports: Anxiety Endocrine/Metabolic History: Reports: Hypothyroidism Hematologic History: Reports: B12 Deficiency Other Dermatologic History: legs turn red periodically without itching or pain Social & Family History - Family History Family Medical History: Noncontributory - Tobacco Use Smoking Status *Q: Never Smoker Used Tobacco, but Quit: Yes Month/Year Tobacco Last Used: 1968 Second Hand Smoke Exposure: No - Caffeine Use Caffeine Use: Reports: Coffee - Recreational Drug Use Recreational Drug Use: No - Living Situation & Occupation Living situation: Reports: Occupation: Employed ED ROS GENERAL - Review of Systems Review Of Systems: ROS reveals no pertinent complaints other than HPI. ED EXAM, GENERAL - Physical Exam Exam: See Below Exam Limited By: No Limitations General Appearance: Alert, WD/WN, No Apparent Distress Eye Exam: Bilateral Eye: PERRL Ears: Hearing Grossly Normal Nose: Normal Inspection Throat/Mouth: Normal Voice, No Airway Compromise Neck: Normal Inspection, Supple Respiratory/Chest: No Respiratory Distress, No Accessory Muscle Use Cardiovascular: Normal Peripheral Pulses, Regular Rate, Rhythm Peripheral Pulses: 4+: Radial (L), Radial (R) GI/Abdominal: Normal Bowel Sounds, Soft, Non-Tender, No Organomegaly, No Distention Back Exam: Normal Inspection Extremities: Pedal Edema (Trace edema noted to the ankles bilaterally), Other ( Faint swelling noted to the base of the right thumb and second metacarpal. No pain. No bony antibiotics. No ecchymosis.) Neurological: Alert, Oriented, CN II-XII Intact, Normal Cognition, No Motor/ Sensory Deficits Psychiatric: Normal Affect, Normal Mood Skin Exam: Warm, Dry, Intact, Normal Color, No Rash Course - Vital Signs Last Recorded V/S: Last Vital Signs Temp 98.2 F 09/07/17 10:21 Pulse 72 09/07/17 10:21 Resp 16 09/07/17 12:50 BP 168/80 H 09/07/17 12:50 Pulse Ox 97 09/07/17 12:50 - Orders/Labs/Meds Labs: Laboratory Tests 09/07/17 09/07/17 Range/Units 11:35 11:35 WBC 5.62 (3.98-10.04) K/mm3 RBC 3.60 L (3.98-5.22) M/mm3 Hgb 11.3 (11.2-15.7) gm/L Hct 32.9 L (34.1-44.9) % MCV 91.4 (79.4-94.8) fl MCH 31.4 (25.6-32.2) pg MCHC 34.3 (32.2-35.5) g/dl RDW Std Deviation 43.0 (36.4-46.3) fL Plt Count 502 H (182-369) K/mm3 MPV 8.4 L (9.4-12.3) fl Neutrophils % (Manual) 82 H (40-60) % Band Neutrophils % 0 (0-10) % Lymphocytes % (Manual) 10 L (20-40) % Atypical Lymphs % 0 % Immat Monocytes % (Man) 0 Monocytes % (Manual) 8 (2-10) % Eosinophils % (Manual) 0 L (0.7-5.8) % Basophils % (Manual) 0 L (0.1-1.2) Metamyelocytes % 0 Myelocytes % 0 Promyelocytes % 0 Blast Cells % 0 Plasma Cell % (Manual) 0 Nucleated RBCs 0.0 % Platelet Estimate Increased RBC Morph Comment Normal Sodium 132 L (136-145) mEq/L Potassium 3.9 (3.5-5.1) mEq/L Chloride 98 (98-107) mEq/L Carbon Dioxide 30 (21-32) mEq/L Anion Gap 7.9 (5-15) BUN 12 (7-18) mg/dL Creatinine 0.7 (0.55-1.02) mg/dL Est Cr Clr Drug Dosing 51.94 mL/min Estimated GFR (MDRD) > 60 (>60) mL/min BUN/Creatinine Ratio 17.1 (14-18) Glucose 94 (80-115) mg/dL Calcium 8.2 L (8.5-10.1) mg/dL Magnesium 1.9 (1.8-2.4) mg/dl C-Reactive Protein 3.3 H* (<1.0) mg/dL - Re-Assessments/Exams Free Text/Narrative Re-Assessment/Exam: Reviewed previous labs prior to discharge. Sodium 128, potassium 3.6, magnesium was 1.6, CRP is 5.5. CBC did not reveal any concerning findings. ESR 81. Will go ahead and check some basic labs including: CBC, Magnesium, CRP, and also BMP. 09/07/17 12:32Labs reviewed CBC and C14 no concerning findings noted. NA improving 132. CR 0.7. CRP trending downward. Mg 1.9. Swelling to the lower extremities is minimal at this time with no concerns. Conservative treatment is required at this time. No medications needed. As far as his swelling to the hand suspect cause was from ringing out the washcloth. Swelling is minimal. Pain is minimal. Will have the patient monitor. Will discharge patient home. Departure - Departure Time of Disposition: 12:32 Disposition: Home, Self-Care 01 Condition: Good Clinical Impression: Edema extremities, Hyponatremia Instructions: Hyponatremia, Qlbe-[id number]-Hyte, Edema Referrals: Abdon Jeter MD [Primary Care Provider] - Forms: ED Department Discharge Additional Instructions: Splint to lower extremities is minimal. Believe this may related to being on her feet for extended periods of time. Plan will be elevating her feet one hour in the morning and afternoon about your heart. Continue eating a balanced diet. Suspect cause of swelling to her right hand is related to the irritation to your muscles while ringing out a washcloth yesterday. Monitor for any changes. Follow-up with your primary care provider as scheduled. Return to the ED if you develop any new or worsening symptoms.
== END 2017-09-07 12:55 | disposition home or self-care (01) ==
LOC: JD.ED 09:56
DX: R60.0 Localized edema (principal); E87.1 Hypo-osmolality and hyponatremia; K21.9 Gastro-esophageal reflux disease without esophagitis; E03.9 Hypothyroidism, unspecified; F41.9 Anxiety disorder, unspecified; Z79.899 Other long term (current) drug therapy
CPT/HCPCS: 36415; 80048; 83735; 85025; 86140; 99284

== ENCOUNTER 2021-02-19 13:44 | Emergency (ER) | payer MEDICARE, BC ==
--- NOTE | 2021-02-19 14:14 | EDM.PDOC ---
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 She states it continued to bleed for almost 2 hours and stopped prior to coming to the ED. She has not had previous problems with nosebleeds recently. No nasal trauma no neck recent nasal surgery. She does have hypertension. At the time I visited with her she had a nasal clamp in place. She denies any blood running down the back of her throat or out her right naris. All the bleeding was coming from the left side. He feels there is a sore on the inner and anterior aspect of the nares along the septum that is causing the bleeding. She does take a 81 mg aspirin daily. Onset: Today, Sudden Onset Date: 02/19/21 Onset Time: 10:00 Duration: Hour(s):, Improving Location: Reports: Face (Left anterior nasal bleeding) Quality: Reports: Other Severity: Moderate (For anterior nosebleed) Improves with: Reports: Other (Direct pressure and closing her naris would slow the bleeding.) Worsens with: Reports: None Context: Reports: Other. Denies: Activity, Exercise, Lifting, Sick Contact, Trauma Associated Symptoms: Denies: Confusion, Chest Pain (Spontaneous nosebleed starting about 10:00 this morning), Cough, cough w sputum, Diaphoresis, Fever/Chills, Headaches, Loss of Appetite, Malaise, Nausea/Vomiting, Rash, Seizure, Shortness of Breath, Syncope, Weakness Treatments [employer]: Reports: Other (see below) (Only her regular medications) - Related Data Allergies Allergy/AdvReac Type Severity Reaction Status Date / Time No Known Allergies Allergy Verified 02/19/21 13:55 Home Meds: Home Meds Levothyroxine [Synthroid] 88 mcg PO ACBREAKFAST 09/01/17 [History] Saccharomyces Boulardii [Florastor] 250 mg PO DAILY #2 cap 09/05/17 [Rx] levoFLOXacin [Levaquin] 750 mg PO Q24H #2 tablet 09/05/17 [Rx] Acetaminophen 1 - 2 tab PO Q6H PRN 09/07/17 [History] Aspirin 1 tab PO DAILY 09/07/17 [History] Omeprazole Magnesium [Prilosec Otc] 1 tab PO ACBREAKFAST 09/07/17 [History] Past Medical History - Past Health History Medical/Surgical History: Denies Medical/Surgical History HEENT History: Reports: Hard of Hearing, Impaired Vision Gastrointestinal History: Reports: GERD Musculoskeletal History: Reports: Arthritis Psychiatric History: Reports: Anxiety Endocrine/Metabolic History: Reports: Hypothyroidism Hematologic History: Reports: B12 Deficiency Other Dermatologic History: legs turn red periodically without itching or pain Social & Family History - Family History Family Medical History: No Pertinent Family History - Tobacco Use Tobacco Use Status *Q: Never Tobacco User - Caffeine Use Caffeine Use: Reports: None - Recreational Drug Use Recreational Drug Use: No - Living Situation & Occupation Living situation: Reports: Occupation: Employed ED ROS ENT - Review of Systems Review Of Systems: See Below Constitutional: Denies: Fever, Chills, Malaise, Weakness, Fatigue, Decreased Appetite, Weight Loss HEENT: Reports: Nosebleed, Rhinitis (Rhinitis.) Respiratory: Reports: No Symptoms (Sided nosebleed starting at 10:00 this morning and persisting.) Cardiovascular: Reports: Blood Pressure Problem Endocrine: Reports: No Symptoms GI/Abdominal: Reports: No Symptoms : Reports: Frequency Musculoskeletal: Reports: Neck Pain (Occasional neck pain), Back Pain Skin: Reports: No Symptoms Neurological: Reports: No Symptoms Psychiatric: Reports: No Symptoms Hematologic/Lymphatic: Reports: No Symptoms ED EXAM, ENT - Physical Exam Exam: See Below Exam Limited By: No Limitations General Appearance: Alert, WD/WN, Anxious, Mild Distress, Other (Temperature is 36.8 degrees. Heart rate was 86 and sinus. Respiratory is 18. BP is 134/81 with O2 sats of 97% room air.) Eye Exam: Bilateral Eye: Normal Inspection (No blepharal pallor or scleral icterus), PERRL Nose: Other (No blood appreciated in the right naris and the mucosa appears healthy. On the left side the mucosa for the most part appears healthy although it is slightly erythematous and injected. There is a small sore which I would describe is a very superficial ulceration anterior aspect of the nares 3 mm a) Mouth/Throat: Normal Inspection, Normal Gums, Normal Lips, Normal Teeth, Other (Blood in the posterior oropharynx.) Head: Atraumatic, Normocephalic Neck: Normal Inspection, Supple, Non-Tender, Full Range of Motion. No: Lymphadenopathy (L), Lymphadenopathy (R) Respiratory/Chest: No Respiratory Distress, Lungs Clear, Normal Breath Sounds, No Accessory Muscle Use Cardiovascular: Normal Peripheral Pulses, Regular Rate, Rhythm, No Edema, No Gallop, No Murmur, No Rub Extremities: Normal Inspection, Normal Range of Motion, Non-Tender, No Pedal Edema Neurological: Alert, Oriented, CN II-XII Intact, Normal Cognition Psychiatric: Normal Affect, Normal Mood Skin: Warm, Dry, Intact, Normal Color, No Rash Course - Vital Signs Last Recorded V/S: Last Vital Signs Temp 36.8 C 02/19/21 13:52 Pulse 86 02/19/21 13:52 Resp 18 02/19/21 13:52 BP 134/81 02/19/21 13:52 Pulse Ox 97 02/19/21 13:52 - Radiology Interpretation Free Text/Narrative:: 76-year-old female presents to the ED with a left anterior nasal bleed since about 10:00 this morning. No nasal trauma. She feels she has had a sore on the inner aspect of her left nares for a few days and that is where the bleeding seems to be coming from. Bleeding it stopped prior to coming to the ED. She denies swallowing any blood and no blood came out the right naris. On inspection the right naris is normal. The left does show a very superficial ulceration on the medial aspect of the left nares at the 10 o'clock position. This area was cauterized with silver nitrate. I will review here in about 10 minutes time. - Re-Assessments/Exams Free Text/Narrative Re-Assessment/Exam: 02/19/21 14:29 on recheck no active bleeding is evident. She will be discharged to home to apply Polysporin ointment to the area once daily at bedtime with a Q-tip or fingertip. Departure - Departure Time of Disposition: 14:28 Disposition: Home, Self-Care 01 Condition: Fair Clinical Impression: Left-sided epistaxis, Epistaxis - Discharge Information *PRESCRIPTION DRUG MONITORING PROGRAM REVIEWED*: Not Applicable *COPY OF PRESCRIPTION DRUG MONITORING REPORT IN PATIENT CLARITA: Not Applicable Instructions: Nosebleed, Adult, [id number] Referrals: Abdon Jeter MD [Primary Care Provider] - Forms: ED Department Discharge Additional Instructions: Evaluation in the emergency room today in regards to persistent bleeding from the left side of your nose since 10:00 this morning. Examination does reveal a small ulceration on the anterior aspect of the left nares. This area was cauterized with silver nitrate. Picking up some Neosporin ointment which is [id number] and applying it to the sore area every night at bedtime for the next 6 days to make sure that it heals. If there is any further bleeding you may touch failure with a silver nitrate stick to stop it. Sepsis Event Note (ED) - Focused Exam Vital Signs: Vital Signs Temp Pulse Resp BP Pulse Ox 02/19/21 13:52 36.8 C 86 18 134/81 97
== END 2021-02-19 14:43 | disposition home or self-care (01) ==
LOC: JD.ED 13:44
DX: R04.0 Epistaxis (principal); K21.9 Gastro-esophageal reflux disease without esophagitis; M19.90 Unspecified osteoarthritis, unspecified site; E03.9 Hypothyroidism, unspecified; Z79.82 Long term (current) use of aspirin; Z79.899 Other long term (current) drug therapy
CPT/HCPCS: 30901; 99282; 99283-25

== ENCOUNTER 2021-02-20 15:24 | Emergency (ER) | payer MEDICARE, BC ==
[2021-02-20] MEDS: Oxymetazoline 0.05% Nasal Spray 30 ML Bottle NAS ONE (16:35)
--- NOTE | 2021-02-20 17:11 | EDM.PDOC ---
ED HPI GENERAL MEDICAL PROBLEM - General Chief Complaint: ENT Problem Stated Complaint: NOSE BLEED Time Seen by Provider: 02/20/21 15:47 Source of Information: Reports: Patient History Limitations: Reports: No Limitations - History of Present Illness INITIAL COMMENTS - FREE TEXT/NARRATIVE: The patient presents with left sided nostril bleed. She was here yesterday for the same. She had the site cauterized. It started bleeding again. She has no recent trauma to the nose. She is on aspirin. She has no history of blood pressure. Onset: Gradual Duration: Hour(s): Location: Reports: Other (left nostril) Severity: Moderate Improves with: Reports: None Worsens with: Reports: None Associated Symptoms: Reports: No Other Symptoms - Related Data Allergies Allergy/AdvReac Type Severity Reaction Status Date / Time No Known Allergies Allergy Verified 02/20/21 15:49 Home Meds: Home Meds Levothyroxine [Synthroid] 88 mcg PO ACBREAKFAST 09/01/17 [History] Saccharomyces Boulardii [Florastor] 250 mg PO DAILY #2 cap 09/05/17 [Rx] levoFLOXacin [Levaquin] 750 mg PO Q24H #2 tablet 09/05/17 [Rx] Acetaminophen 1 - 2 tab PO Q6H PRN 09/07/17 [History] Aspirin 1 tab PO DAILY 09/07/17 [History] Omeprazole Magnesium [Prilosec Otc] 1 tab PO ACBREAKFAST 09/07/17 [History] Past Medical History - Past Health History Medical/Surgical History: Denies Medical/Surgical History HEENT History: Reports: Hard of Hearing, Impaired Vision Gastrointestinal History: Reports: GERD Musculoskeletal History: Reports: Arthritis Psychiatric History: Reports: Anxiety Endocrine/Metabolic History: Reports: Hypothyroidism Hematologic History: Reports: B12 Deficiency Other Dermatologic History: legs turn red periodically without itching or pain Social & Family History - Family History Family Medical History: No Pertinent Family History - Tobacco Use Tobacco Use Status *Q: Never Tobacco User Second Hand Smoke Exposure: No - Caffeine Use Caffeine Use: Reports: None - Recreational Drug Use Recreational Drug Use: No - Living Situation & Occupation Living situation: Reports: Occupation: Employed ED ROS ENT - Review of Systems Review Of Systems: See Below Constitutional: Reports: No Symptoms HEENT: Reports: Nosebleed Respiratory: Reports: No Symptoms Cardiovascular: Reports: No Symptoms Endocrine: Reports: No Symptoms GI/Abdominal: Reports: No Symptoms : Reports: No Symptoms Musculoskeletal: Reports: No Symptoms ED EXAM, ENT - Physical Exam Exam: See Below Exam Limited By: No Limitations General Appearance: Alert, No Apparent Distress Ears: Normal External Exam Nose: Active Bleeding Head: Atraumatic, Normocephalic Neck: Normal Inspection Respiratory/Chest: No Respiratory Distress ED ENT PROCEDURES - Epistaxis Procedure Indication: Epistaxis Recent anticoagulants/antiplatlets: Yes Uncontrolled HTN: No Recent septal/nasal surgery: No Site of bleeding: Left Nare Clearing of clots: Patient Blew Nose Topical Meds: Other (Afrin) Ice pack to area: No Chemical cautery: Silver Nitrate Topical Complications: No Course - Vital Signs Last Recorded V/S: Last Vital Signs Temp 97 F 02/20/21 15:43 Pulse 71 02/20/21 15:43 Resp 16 02/20/21 15:43 BP 157/55 H 02/20/21 15:43 Pulse Ox 96 02/20/21 15:43 - Orders/Labs/Meds Meds: Medications Discontinued Medications Generic Name Dose Route Start Last Admin Trade Name Mina PRN Reason Stop Dose Admin Oxymetazoline HCl 1 ml 02/20/21 16:04 02/20/21 16:35 Oxymetazoline 0.05% Nasal [place] 30 Ml Bottle KARSON 02/20/21 16:05 1 ml ONETIME ONE Administration - Re-Assessments/Exams Free Text/Narrative Re-Assessment/Exam: 02/20/21 17:09 I put some afrin in her nose and I used silver nitrate to cauterize it. Departure - Departure Time of Disposition: 17:10 Disposition: Home, Self-Care 01 Condition: Good Clinical Impression: Epistaxis - Discharge Information *PRESCRIPTION DRUG MONITORING PROGRAM REVIEWED*: Not Applicable *COPY OF PRESCRIPTION DRUG MONITORING REPORT IN PATIENT CLARITA: Not Applicable Referrals: Abdon Jeter MD [Primary Care Provider] - 1 Week Additional Instructions: Stop you aspirin for 5 days. Put Young in each nostril 2 to 3 times per day. Please return if you are worse. Sepsis Event Note (ED) - Evaluation Sepsis Screening Result: No Definite Risk - Focused Exam Vital Signs: Vital Signs Temp Pulse Resp BP Pulse Ox 02/20/21 15:43 97 F 71 16 157/55 H 96
== END 2021-02-20 17:26 | disposition home or self-care (01) ==
LOC: JD.ED 15:24
DX: R04.0 Epistaxis (principal); K21.9 Gastro-esophageal reflux disease without esophagitis; E03.9 Hypothyroidism, unspecified; Z79.899 Other long term (current) drug therapy; Z79.82 Long term (current) use of aspirin
CPT/HCPCS: 30901; 99283; A9270; 99282

== ENCOUNTER 2022-11-07 21:16 | Emergency (ER) | payer MEDICARE, OTHER ==
[2022-11-07] MEDS ORDERED: Sodium Chloride 0.9% 10 ML Syringe FLUSH PRN (21:37)
[2022-11-07] MEDS ORDERED: Ondansetron 4 MG/2 ML SDV IVPUSH ONE (21:37)
[2022-11-07 21:43] LABS: BASOPHILS ABSOLUTE AUTO 0.01 K/mm3 (0.01-0.08); BASOPHILS PERCENT AUTO 0.1 % (0.1-1.2); EOSINOPHILS ABSOLUTE AUTO 0.05 K/mm3 (0.04-0.36); EOSINOPHILS PERCENT AUTO 0.6 (0.7-5.8); HEMATOCRIT 34.5 % (34.1-44.9); HEMOGLOBIN 11.6 gm/dl (11.2-15.7); IMMATURE GRAN ABSOLUTE AUTO 0.01 K/mm3 (0.00-0.10); IMMATURE GRAN PERCENT AUTO 0.1 % (<=1.0); LYMPHOCYTES ABSOLUTE AUTO 0.24 K/mm3 (1.18-3.74); LYMPHOCYTES PERCENT AUTO 2.7 % (19.3-51.7); MEAN CORPUSCULAR HEMOGLOBIN 28.8 pg (25.6-32.2); MEAN CORPUSCULAR HGB CONC 33.6 g/dl (32.2-35.5); MEAN CORPUSCULAR VOLUME 85.6 fl (79.4-94.8); MEAN PLATELET VOLUME 9.3 fl (9.4-12.3); MONOCYTES ABSOLUTE AUTO 0.26 K/mm3 (0.24-0.36); MONOCYTES PERCENT AUTO 2.9 % (4.7-12.5); NEUTROPHILS ABSOLUTE AUTO 8.31 K/mm3 (1.56-6.13); NEUTROPHILS PERCENT AUTO 93.6 % (34.0-71.1); PLATELET COUNT,PLT 186 K/mm3 (182-369); RED BLOOD CELL COUNT 4.03 M/mm3 (3.98-5.22); WHITE BLOOD CELL COUNT,WBC 8.88 K/mm3 (3.98-10.04)
[2022-11-07] MEDS ORDERED: Sodium Chloride 0.9% 1,000 ML IV SCH (21:45)
[2022-11-07 21:58] LABS: A/G RATIO 0.9 (1-2); ALBUMIN 3.4 g/dl (3.4-5.0); ANION GAP 11.9 (5-15); BILIRUBIN TOTAL 0.3 mg/dL (0.2-1.0); C-REACTIVE PROTEIN 1.5 mg/dL (<1.0); CALCIUM 8.4 mg/dL (8.5-10.1); CREATININE 0.8 mg/dL (0.55-1.02); EST CRCL DRUG DOSING (CG) 45.85 mL/min; POTASSIUM,K 2.9 mEq/L (3.5-5.1); PROTEIN TOTAL,TP 7.4 g/dl (6.4-8.2)
[2022-11-07 21:59] LABS: APPEARANCE,URINE CLEAR (Clear); BILIRUBIN,URINE NEGATIVE (Negative); COLOR,URINE YELLOW (Yellow); GLUCOSE,URINE NEGATIVE (Negative); KETONES,URINE NEGATIVE (Negative); LEUKOCYTE ESTERASE,URINE NEGATIVE (Negative); NITRITE,URINE NEGATIVE (Negative); OCCULT BLOOD,URINE 1+ (Negative); PROTEIN,URINE TRACE (Negative); UROBILINOGEN,URINE 0.2 (0.2-1.0)
[2022-11-07 22:10] LABS: SQUAMOUS EPITHELIAL CELLS,UR NOT SEEN /hpf (0-5); WBC,URINE 0-5 /hpf (0-5)
[2022-11-07 22:11] LABS: BACTERIA,URINE FEW /hpf (FEW); MUCUS,URINE NOT SEEN /hpf (FEW)
[2022-11-07] MEDS ORDERED: Aspirin 81 MG Tab.Chew PO ONE (22:29)
[2022-11-07 22:35] LABS: SLIDE REVIEW ABNORMAL SMEAR
[2022-11-07] MEDS ORDERED: Heparin Sodium 5,000 Units/ML Vial IVPUSH ONE ×2 (22:41→23:18)
[2022-11-07] MEDS ORDERED: Heparin Sodium/D5W 25,000 UNITS/500 ML BAG IV SCH (22:45)
[2022-11-07] MEDS: Potassium Chloride 10 MEQ in Premix Bag 1 BAG IV SCH (23:07)
[2022-11-07 23:17] LABS: CORONAVIRUS COVID-19 NAA NEGATIVE (NEGATIVE); INFLUENZA A NAA NEGATIVE (NEGATIVE); RESPIRATORY SYNCYTIAL VIR NAA NEGATIVE (NEGATIVE)
[2022-11-08] MEDS: Potassium Chloride 10 MEQ in Premix Bag 1 BAG IV SCH (00:10)
== END 2022-11-08 00:35 ==
LOC: JD.ED 21:16
DX: I21.4 Non-ST elevation (NSTEMI) myocardial infarction (principal); E87.6 Hypokalemia; E87.1 Hypo-osmolality and hyponatremia; E03.9 Hypothyroidism, unspecified; I10 Essential (primary) hypertension; Z79.899 Other long term (current) drug therapy; Z79.82 Long term (current) use of aspirin; Z87.891 Personal history of nicotine dependence; Z20.822 Contact with and (suspected) exposure to COVID-19
CPT/HCPCS: 0241U; 36415; 71046; 80053; 81001; 83605; 84484; 85025; 86140; 93005; 96361; 96365; 96367; 96368; 96375; 96376; 99285; A9270; J1644; J2405; J3480; J7030; 93010